=== PATIENT | male | born 1970 | race Caucasian/White ===

== ENCOUNTER 2016-07-30 10:23 | Inpatient (IN) ==
[2016-07-30 11:34] LABS: Basophils # 0.1 K/mcL (0.0-0.2); Basophils % 0.7 %; Eosinophils # 0.4 K/mcL (0.0-0.6); Eosinophils % 2.4 %; Hematocrit 43.1 % (37.5-50.1); Hemoglobin 14.7 g/dL (12.9-16.9); Immature Granulocytes % 3.4 % (0-4); Lymphocytes # 5.2 K/mcL (0.6-4.6); Mean Corpuscular HGB Conc 34.1 g/dL (31.6-35.5); Mean Corpuscular Hemoglobin 28.9 pg (28.0-33.3); Mean Corpuscular Volume 84.7 fL (83.0-100.0); Mean Platelet Volume 9.4 fL (9.4-12.4); Monocytes # 1.1 K/mcL (0.0-1.3); Monocytes % 7.7 %; Neutrophils # 7.5 K/mcL (1.6-8.9); Platelet Count 293 K/mcL (140-400); Red Blood Count 5.09 M/mcL (4.19-5.50); Red Cell Distribution Width 13.2 % (11.5-14.5); Segmented Neutrophils % 50.8 %
[2016-07-30] MEDS ORDERED: Vancomycin 1,250 MG in D5% in Water 250 ML IVPB ONE (11:37)
[2016-07-30 11:39] LABS: Prothrombin Time 10.6 Seconds (9.4-12.1)
[2016-07-30 11:42] LABS: Activated Partial Thrombo Time 34.6 Seconds (26.0-36.0)
[2016-07-30 11:52] LABS: Alanine Aminotransferase 98 Units/L (0-55); Albumin 3.6 g/dL (3.5-5.0); Albumin/Globulin Ratio 0.8 (1.1-2.2); Alkaline Phosphatase 96 Units/L (38-126); Aspartate Amino Transferase 36 Units/L (5-34); BUN/Creatinine Ratio 11 (6-26); Bilirubin,Direct 0.1 mg/dL (0.0-0.5); Bilirubin,Indirect 0.3 mg/dL (0.0-1.2); Bilirubin,Total 0.4 mg/dL (0.2-1.2); Blood Urea Nitrogen 11 mg/dL (8-26); Calcium 9.7 mg/dL (8.6-10.8); Carbon Dioxide 29 mEq/L (19-29); Chloride 100 mEq/L (98-109); Globulin 4.4 g/dL (2.4-3.5); Glucose 93 mg/dL (70-99); Magnesium 1.8 mg/dL (1.6-2.6); Osmolality,Calculated 285 (280-300); Phosphorous 3.4 mg/dL (2.3-4.7); Potassium 4.1 mEq/L (3.5-4.5); Sodium 138 mEq/L (136-145); eGFR For African Americans > 60 (> 60); eGFR For Non-African Americans > 60 (> 60)
--- NOTE | 2016-07-30 12:06 | Emergency Department Note ---
Disposition Clinical Impression: Endocarditis Qualifiers: Endocarditis type: infective Infective endocarditis organism: bacterial Chronicity: subacute Qualified Code(s): I33.0 - Acute and subacute infective endocarditis Chest pain Qualifiers: Chest pain type: unspecified Qualified Code(s): R07.9 - Chest pain, unspecified Disposition: Admitted As Inpatient Forms: Work/School Release, ED Satisfaction Letter Chest Pain HPI - General Chief Complaint: ED General Medical Stated Complaint: Endocarditis,sepsis Time Seen by Provider: 07/30/16 10:40 Source: patient Limitations: no limitations Vital Signs Reviewed: Yes Nursing Notes Reviewed: Yes - History of Present Illness Pt complaint: chest pain Duration: constant Onset: during rest Pain Location: substernal Severity scale (1-10): 6 Quality: aching Pain Radiation: none Improves with: nothing Worsens with: nothing Context: recent illness (diagnosed with endocarditis left GYPSY calderon had vancomycin infiltrated in left arm caused a lot of alas and anxiety and left the hospital) Treatments prior to arrival chest pain: none - Related Data Home Medications Medication Instructions Recorded Confirmed Albuterol Sulfate [Albuterol 2 puff IH Q4HR 05/20/15 05/20/15 Inhaler] Aspirin [Adult Low Dose Aspirin EC] 81 mg PO DAILY 05/20/15 05/20/15 Buspirone HCl [Buspar] 30 mg PO BID 05/20/15 05/20/15 CloNIDine HCl 0.1 mg PO BID 05/20/15 05/20/15 Diazepam [Valium] 5 mg PO TID 05/20/15 05/20/15 HydrOXYzine Pamoate [HydrOXYzine 50 mg PO BID 05/20/15 05/20/15 Pamoate] Lisinopril-HCTZ 20-12.5 [Prinzide 1 tab PO BID 05/20/15 05/20/15 20-12.5] Ranitidine HCl [Zantac] 150 mg PO BID 05/20/15 05/20/15 Previous Rx's Medication Instructions Recorded Levofloxacin [Levaquin] 500 mg PO DAILY #5 tablet 05/21/15 PredniSONE 20 mg PO DAILY #7 tablet 05/21/15 TraMADol [Ultram] 50 mg PO Q6HR #16 tablet 07/18/15 Azithromycin [Zithromax] 250 mg PO DAILY #6 tablet 06/16/16 MethylPREDNISolone [Medrol] 4 mg PO TAPER #21 tablet 06/16/16 Promethazine/Dextromethorphan 5 ml PO Q6H PRN #120 ml 06/16/16 [Promethazine-Dm Syrup] Allergies Allergy/AdvReac Type Severity Reaction Status Date / Time budesonide [From Symbicort] Allergy Swelling Verified 05/20/15 10:19 of Lip/Tongue/Throat Formoterol [From Symbicort] Allergy Swelling Verified 05/20/15 10:19 of Lip/Tongue/Throat Penicillins Allergy Hives Verified 05/20/15 10:19 Wzoglva-Mxt-Qps Reductase Allergy Muscle Pain Verified 05/20/15 10:19 Inhibitor [Statins] All systems ED: reviewed and negative except as stated. Constitutional: Denies: fever Respiratory: Denies: wheezes, hemoptysis Chest Pain PMH - Past Medical History Medical history: Reports: COPD, GERD, hyperlipidemia, hypertension Surgical history: Reports: no surgical history Psychiatric history: Reports: anxiety, depression, panic disorder - Social History Smoking Status: Current every day smoker Alcohol use: Reports: occasionally Drug use: Reports: marijuana Physical Exam - General Limitations: no limitations General appearance: alert - Head Head exam: atraumatic, normocephalic, normal inspection - Eye Eye exam: Present: normal appearance, PERRL, EOMI - Expanded Eye Exam Pupils: Left: reactive - ENT ENT exam: normal exam, normal oropharynx, mucous membranes moist - Expanded ENT Exam External ear exam: Present: normal external inspection Mouth exam: Present: normal external inspection Teeth exam: Present: normal inspection Throat exam: Present: normal inspection - Neck Neck exam: Present: normal inspection, full ROM, trachea midline - Chest Chest inspection: Present: normal inspection, symmetric chest wall rise - Respiratory Respiratory exam: Present: normal lung sounds bilaterally - Cardiovascular Cardiovascular exam: Present: regular rate, normal rhythm, normal heart sounds - Abdominal Exam Abdominal exam: Present: soft, Non-Tender. Absent: tenderness, distention, guarding, rebound, rigidity - Extremities Exam Extremities exam: Present: normal inspection, full ROM. Absent: tenderness, pedal edema - Expanded Upper Extremity Exam Shoulder exam: Present: normal inspection, full ROM Arm exam: Present: normal inspection, full ROM Elbow exam: Present: normal inspection, full ROM Forearm/Wrist exam: Present: normal inspection, full ROM Hand exam: Present: normal inspection, full ROM Vascular exam: Normal: capillary refill, radial pulse - Expanded Lower Extremity Exam Hip/Pelvis exam: Present: normal inspection, full ROM Upper leg exam: Present: normal inspection, full ROM Knee exam: Present: normal inspection, full ROM Lower leg exam: Present: normal inspection, full ROM Ankle exam: Present: normal inspection, full ROM Foot/toe exam: Present: normal inspection, full ROM Neurovascular/Tendon exam: Absent: motor deficit, sensory deficit, tendon deficit - Back Exam Back exam: Present: normal inspection, full ROM. Absent: tenderness - Neurological Exam Neurological exam: Present: alert, oriented X3 - Expanded Neurological Exam Patient oriented to: Present: person, place, time Coma Scale Eye Opening: Spontaneous Coma Scale Motor Response: Obeys Commands Coma Scale Verbal Response: Oriented Coma Scale Total: 15 - Psychiatric Psychiatric exam: Present: normal affect, normal mood - Skin Skin exam: Present: warm, dry, intact, normal color Course Vital Signs Temperature 98.6 F 07/30/16 10:31 Pulse Rate 100 07/30/16 10:31 Respiratory Rate 18 07/30/16 10:31 Blood Pressure 155/108 07/30/16 10:31 O2 Sat by Pulse Oximetry 99 07/30/16 10:31 Temperature 98.6 F 07/30/16 10:31 Pulse Rate 100 07/30/16 10:31 Respiratory Rate 18 07/30/16 10:31 Blood Pressure 155/108 07/30/16 10:31 O2 Sat by Pulse Oximetry 99 07/30/16 10:31 Oxygen Delivery Oxygen Delivery Room Air Chest Pain - Differential Diagnosis Likely: stable angina, unstable angina pectoris, atypical chest pain, st elevation myocardial infraction, chest pain - Medical Records Medical records reviewed: Yes I reviewed the patient's medical records. - Lab Data Lab results reviewed: Yes I reviewed the patient's lab results. Result diagrams: 07/30/16 11:20 07/30/16 11:20 Lab Results 07/30/16 07/30/16 07/30/16 Range/Units 11:20 11:20 11:20 WBC 14.8 H (4.3-11.1) K/mcL RBC 5.09 (4.19-5.50) M/mcL Hgb 14.7 (12.9-16.9) g/dL Hct 43.1 (37.5-50.1) % MCV 84.7 (83.0-100.0) fL MCH 28.9 (28.0-33.3) pg MCHC 34.1 (31.6-35.5) g/dL RDW 13.2 (11.5-14.5) % Plt Count 293 (140-400) K/mcL MPV 9.4 (9.4-12.4) fL Immature Gran % 3.4 (0-4) % Seg Neutrophils % 50.8 % Lymphocytes % 35.0 % Monocytes % 7.7 % Eosinophils % 2.4 % Basophils % 0.7 % Neutrophils # 7.5 (1.6-8.9) K/mcL Lymphocytes # 5.2 H (0.6-4.6) K/mcL Monocytes # 1.1 (0.0-1.3) K/mcL Eosinophils # 0.4 (0.0-0.6) K/mcL Basophils # 0.1 (0.0-0.2) K/mcL PT 10.6 (9.4-12.1) Seconds INR 1.0 APTT 34.6 (26.0-36.0) Seconds Sodium 138 (136-145) mEq/L Potassium 4.1 (3.5-4.5) mEq/L Chloride 100 (98-109) mEq/L Carbon Dioxide 29 (19-29) mEq/L BUN 11 (8-26) mg/dL Creatinine 0.96 (0.72-1.25) mg/dL Est GFR ( Amer) > 60 (> 60) Est GFR (Non-Af Amer) > 60 (> 60) BUN/Creatinine Ratio 11 (6-26) Glucose 93 (70-99) mg/dL Calculated Osmolality 285 (280-300) Lactic Acid (0.5-2.2) mmol/L Calcium 9.7 (8.6-10.8) mg/dL Phosphorus 3.4 (2.3-4.7) mg/dL Magnesium 1.8 (1.6-2.6) mg/dL Total Bilirubin 0.4 (0.2-1.2) mg/dL Direct Bilirubin 0.1 (0.0-0.5) mg/dL Indirect Bilirubin 0.3 (0.0-1.2) mg/dL AST 36 H (5-34) Units/L ALT 98 H (0-55) Units/L Alkaline Phosphatase 96 (38-126) Units/L Troponin I (0-0.03) ng/mL Serum Total Protein 8.0 (6.0-8.3) g/dL Albumin 3.6 (3.5-5.0) g/dL Globulin 4.4 H (2.4-3.5) g/dL Albumin/Globulin Ratio 0.8 L (1.1-2.2) 07/30/16 07/30/16 Range/Units 11:20 11:20 WBC (4.3-11.1) K/mcL RBC (4.19-5.50) M/mcL Hgb (12.9-16.9) g/dL Hct (37.5-50.1) % MCV (83.0-100.0) fL MCH (28.0-33.3) pg MCHC (31.6-35.5) g/dL RDW (11.5-14.5) % Plt Count (140-400) K/mcL MPV (9.4-12.4) fL Immature Gran % (0-4) % Seg Neutrophils % % Lymphocytes % % Monocytes % % Eosinophils % % Basophils % % Neutrophils # (1.6-8.9) K/mcL Lymphocytes # (0.6-4.6) K/mcL Monocytes # (0.0-1.3) K/mcL Eosinophils # (0.0-0.6) K/mcL Basophils # (0.0-0.2) K/mcL PT (9.4-12.1) Seconds INR APTT (26.0-36.0) Seconds Sodium (136-145) mEq/L Potassium (3.5-4.5) mEq/L Chloride (98-109) mEq/L Carbon Dioxide (19-29) mEq/L BUN (8-26) mg/dL Creatinine (0.72-1.25) mg/dL Est GFR ( Amer) (> 60) Est GFR (Non-Af Amer) (> 60) BUN/Creatinine Ratio (6-26) Glucose (70-99) mg/dL Calculated Osmolality (280-300) Lactic Acid 1.6 (0.5-2.2) mmol/L Calcium (8.6-10.8) mg/dL Phosphorus (2.3-4.7) mg/dL Magnesium (1.6-2.6) mg/dL Total Bilirubin (0.2-1.2) mg/dL Direct Bilirubin (0.0-0.5) mg/dL Indirect Bilirubin (0.0-1.2) mg/dL AST (5-34) Units/L ALT (0-55) Units/L Alkaline Phosphatase (38-126) Units/L Troponin I 0.00 (0-0.03) ng/mL Serum Total Protein (6.0-8.3) g/dL Albumin (3.5-5.0) g/dL Globulin (2.4-3.5) g/dL Albumin/Globulin Ratio (1.1-2.2) - EKG Data EKG attestation: Yes I reviewed and interpreted this EKG.
[2016-07-30] MEDS ORDERED: Ondansetron 4 MG/2 ML VIAL IV ONE (12:12)
[2016-07-30] MEDS ORDERED: *HR* HYDROmorphone (PF) 1 MG/ML SYRINGE IV ONE (12:12)
--- NOTE | 2016-07-30 14:50 | Internal Med History&Physical ---
Date of Encounter: 07/30/16 Time of Encounter: 15:44 Assessment and Plan (1) Endocarditis Current visit: Yes Status: Acute Has not had positive blood cultures, but has had mitral valve vegetation seen on [place] at [place], per report. Evaluated by ID at [facility], thought to be secondary to extensive dental extraction, patient denies IV drug abuse. Patient has history of leaving hospital AMA multiple times in past. - Restart vanc and ertapenem - Blood cultures obtained in ER - Midline placed in ER, as patient reports he left AMA from last hospital because of IV infiltration - Consult ID for assistance with antibiotic regimen and follow up Qualifiers: Endocarditis type: infective Infective endocarditis organism: bacterial Chronicity: acute Qualified Code(s): I33.0 - Acute and subacute infective endocarditis (2) Anxiety Current visit: Yes Status: Chronic Stable - Continue home meds (3) COPD (chronic obstructive pulmonary disease) Current visit: No Status: Chronic Not in current exacerbation - Continue home symbicort - Duonebs Qualifiers: COPD type: unspecified COPD Qualified Code(s): J44.9 - Chronic obstructive pulmonary disease, unspecified (4) HTN (hypertension) Current visit: No Status: Chronic BP stable - Continue home meds Qualifiers: Hypertension type: essential hypertension Qualified Code(s): I10 - Essential (primary) hypertension (5) Chest pain Current visit: Yes Status: Acute Pleuritic, secondary to endocarditis, as it has been present for several weeks. Qualifiers: Chest pain type: unspecified Qualified Code(s): R07.9 - Chest pain, unspecified Internal Medicine - H&P: HPI Chief complaint: Chest pain Admitted From: Emergency Dept Plans for Post Hospital Care: Home History of present illness: Mr. Harris is a 46 year old male with history of HTN, COPD, anxiety, and multiple recent admissions for presumed bacterial endocarditis who presented to the ER this morning with complaint of chest pain. He has been admitted both at [facility] and [facility] over the past month with leukocytosis, fever, and concern for vegetation on the mitral valve. He left AMA from each hospitalization, then saw his PCP today who recommended he present to the hospital for further treatment. Per records from [facility], where he was most recently hospitalized (07/24-07/26), it appears that he had been evaluated by ID and it was recommended he take at least four weeks of IV vancomycin and ertapenem, as no blood cultures had returned positive. He denies IV drug abuse and it was felt his endocarditis may have been secondary to recent dental extractions. He states that today he continues to have pain under the left breast, worse with deep inspiration, and has been present since he first presented for endocarditis. He also is experiencing dull generalized abdominal pain. Denies recent fever/chills, nausea, vomiting or diarrhea. Past Med Surg Social Fam HX - Past Medical History Medical history: COPD, GERD, hyperlipidemia, hypertension Psychiatric history: anxiety, depression, panic disorder - Past Surgical History Surgical History: no surgical history - Social History Smoking Status: Current every day smoker Smokeless Tobacco Status: No Alcohol use: occasionally Drug use: marijuana - Family History Mother Adopted: No Age: 65 Family Member Ethnicity: Non- Living Status: Still Living Hx Family Cardiac Disorders: Yes (bypass surgery) Hx Family Respiratory Disorders: Yes (COPD) Hx Family Cancer: No Hx Family GI Disorders: No Hx Family Genitourinary Disorders: No Hx Family Endocrine Disorder: No Hx Family Musculoskeletal Disorders: No Hx Family Neuromuscular Disorders: No Hx Family Neurologic Disorders: No Hx Family HEENT Disorders: No Hx Family Autoimmune Disorders: No Hx Family Reproductive Disorders: No Hx Family Psychosocial Disorders: No Hx Family Medical Disorders: No Internal Medicine - H&P: Meds Albuterol Sulfate [Albuterol Inhaler] 2 puff IH Q4HR 05/20/15 [History] Buspirone HCl [Buspar] 30 mg PO BID 05/20/15 [History] CloNIDine HCl 0.1 mg PO BID 05/20/15 [History] Diazepam [Valium] 5 mg PO TID 05/20/15 [History] HydrOXYzine Pamoate [HydrOXYzine Pamoate] 50 mg PO BID 05/20/15 [History] Lisinopril-HCTZ 20-12.5 [Prinzide 20-12.5] 1 tab PO BID 05/20/15 [History] Ranitidine HCl [Zantac] 150 mg PO BID 05/20/15 [History] Budesonide/Formoterol 80/4.5 [Symbicort 80/4.5] 2 puff IH BID 07/30/16 [History ] Ipratropium/Albuterol Neb [Duoneb] 3 ml IH Q6HR 07/30/16 [History] Allergies Penicillins Allergy (Verified 05/20/15 10:19) Hives [id number]-[id number] Reductase Inhibitor [Statins] Allergy (Verified 05/20/15 10:19) Muscle Pain budesonide [From Symbicort] Adverse Reaction (Unknown, Verified 07/30/16 15:33) THRUSH Formoterol [From Symbicort] Adverse Reaction (Unknown, Verified 07/30/16 15:33) THRUSH All Systems PM: A 10-system review of systems was performed and is negative for pertinent findings except as documented above in the HPI. - Constitutional Vitals: Temp Pulse Resp BP Pulse Ox 98.6 F 100 16 155/108 98 07/30/16 10:31 07/30/16 10:31 07/30/16 12:56 07/30/16 10:31 07/30/16 12:56 General appearance: Present: A&O X 3 Exam: Patient in no acute distress, resting comfortably in bed - Head Head exam: Present: atraumatic - Eye Eye exam: Present: EOMI, sclera anicteric - ENT ENT exam: Present: mucous membranes moist - Neck Neck exam general surgery: Present: supple - Respiratory Respiratory exam: Present: CTAB - Cardiovascular Cardiovascular exam: Present: RRR. Absent: diastolic murmur, gallop, rubs, systolic murmur - GI/Abdominal GI/Abdominal exam: Present: normal bowel sounds, soft, tenderness (mildly tender throughout). Absent: guarding, rebound - Extremities Exam Extremities exam: Absent: pedal edema - Neurological Exam Neurological exam: Present: no focal deficits - Skin Skin exam: Absent: rash Additional comments: multiple tattoos Internal Med - H&P Results - Labs CBC & Chem 7: 07/30/16 11:20 07/30/16 11:20
[2016-07-30] MEDS ORDERED: Naloxone 0.4 MG/ML INJ IVP PRN (15:03)
[2016-07-30] MEDS ORDERED: Vancomycin 1,250 MG in D5% in Water 250 ML IVPB SCH (16:00)
[2016-07-30] MEDS ORDERED: *HR* Enoxaparin 40 MG/0.4 ML SYRINGE SQ ONE (17:01)
[2016-07-30] MEDS: Ipratropium/Albuterol Neb 3 ML IH SCH ×2 (17:02→21:11)
[2016-07-30] MEDS: *HR* OxyCODONE/APAP 5/325 TABLET PO PRN ×2 (17:03→22:35)
[2016-07-30] MEDS ORDERED: Nicotine 21 MG PATCH.TD24 TD STA (18:56)
[2016-07-30] MEDS: *HR* HYDROmorphone (PF) 1 MG/ML SYRINGE IVP PRN (19:30)
[2016-07-30] MEDS: diazePAM 5 MG TABLET PO SCH (20:12)
[2016-07-30] MEDS: Lisinopril-HCTZ 20-12.5mg TABLET PO SCH (20:12)
[2016-07-30] MEDS: hydrOXYzine pamoate 25 MG CAPSULE PO SCH (20:12)
[2016-07-30] MEDS: cloNIDine HCl 0.1 MG TABLET PO SCH (20:12)
[2016-07-30] MEDS ORDERED: Famotidine 20 MG TABLET PO SCH (21:00)
[2016-07-30] MEDS: Budesonide/Formoterol 80/4.5 MDI IH SCH (21:02)
[2016-07-31] MEDS: *HR* HYDROmorphone (PF) 1 MG/ML SYRINGE IVP PRN (01:21)
[2016-07-31] MEDS: Vancomycin 1,250 MG in D5% in Water 250 ML IVPB SCH ×2 (01:24→13:22)
[2016-07-31 03:46] LABS: Basophils # 0.1 K/mcL (0.0-0.2); Basophils % 0.6 %; Eosinophils # 0.4 K/mcL (0.0-0.6); Eosinophils % 2.8 %; Hematocrit 40.8 % (37.5-50.1); Immature Granulocytes % 2.3 % (0-4); Lymphocytes # 4.7 K/mcL (0.6-4.6); Lymphocytes % 36.9 %; Mean Corpuscular HGB Conc 34.3 g/dL (31.6-35.5); Mean Corpuscular Hemoglobin 29.5 pg (28.0-33.3); Mean Corpuscular Volume 86.1 fL (83.0-100.0); Mean Platelet Volume 9.7 fL (9.4-12.4); Monocytes % 7.7 %; Neutrophils # 6.3 K/mcL (1.6-8.9); Platelet Count 264 K/mcL (140-400); Red Blood Count 4.74 M/mcL (4.19-5.50); Red Cell Distribution Width 13.1 % (11.5-14.5); Segmented Neutrophils % 49.7 %
[2016-07-31 03:57] LABS: BUN/Creatinine Ratio 13 (6-26); Blood Urea Nitrogen 11 mg/dL (8-26); Carbon Dioxide 23 mEq/L (19-29); Chloride 100 mEq/L (98-109); Glucose 121 mg/dL (70-99); Osmolality,Calculated 281 (280-300); Potassium 3.9 mEq/L (3.5-4.5); Sodium 135 mEq/L (136-145); eGFR For African Americans > 60 (> 60); eGFR For Non-African Americans > 60 (> 60)
[2016-07-31] MEDS: *HR* OxyCODONE/APAP 5/325 TABLET PO PRN ×5 (03:57→21:05)
[2016-07-31] MEDS: Ipratropium/Albuterol Neb 3 ML IH SCH ×2 (04:28→10:32)
[2016-07-31] MEDS ORDERED: Famotidine 20 MG TABLET PO SCH (07:30)
[2016-07-31] MEDS: Nicotine 21 MG PATCH.TD24 TD SCH (08:03)
[2016-07-31] MEDS: cloNIDine HCl 0.1 MG TABLET PO SCH ×2 (08:03→21:04)
[2016-07-31] MEDS: diazePAM 5 MG TABLET PO SCH ×3 (08:03→21:05)
[2016-07-31] MEDS: hydrOXYzine pamoate 25 MG CAPSULE PO SCH ×2 (08:03→21:04)
[2016-07-31] MEDS: Lisinopril-HCTZ 20-12.5mg TABLET PO SCH ×2 (08:03→21:04)
[2016-07-31] MEDS: Budesonide/Formoterol 80/4.5 MDI IH SCH ×2 (08:21→20:03)
[2016-07-31] MEDS ORDERED: Ertapenem 1,000 MG in 0.9 % Sodium Chloride Mini Bag 100 ML IVPB SCH (09:00)
[2016-07-31] MEDS: RANITIDINE 150 MG PO SCH ×2 (10:01→22:38)
--- NOTE | 2016-07-31 10:10 | Internal Med Progress Note ---
<Malina Acuna - Last Filed: 07/31/16 17:27> Date of Encounter: 07/31/16 Time of Encounter: 10:07 - Assessment and plan (1) Endocarditis Current Visit: Yes Status: Acute Assessment and plan: Patient has previous dx of endocarditis at [facility], was started on Vanc and ertapenem at [facility] but left AM after IV infiltrated before he could have outpatient IV therapy set up. Patient afebrile, WBC 12.7 today. ID is on board and has reviewed records obtained from [facility]. Plan: -PICC line placed -Ertapenem stopped -Continue vanc, will likely need 6 weeks of IV therapy -Start Gentamicin 1mg/kg IV Q8H for 2 weeks (unable to use amp/sulbactam due to PCN allergy). -Cipro 500mg BID -HH infusion therapy in place, rx sent for infusions to begin tomorrow. -Per ID: -Baseline hearing test with audiology for 11AM 08/01 -Check labs twice weekly for the entire duration of treatment: CBC, BMP and vanc and gentamicin levels per protocol. -Weekly PICC care per protocol. -Follow up with ID 08/15/15 at 1400. -Will need a repeat ECHO after treatment completed. 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 shelter use Qualified Code(s): E11.9 - Type 2 diabetes mellitus without complications (4) HTN (hypertension) Current Visit: No Status: Chronic Qualifiers: Hypertension type: essential hypertension Qualified Code(s): I10 - Essential (primary) hypertension (5) Tobacco abuse Current Visit: No Status: Chronic Assessment and plan: Nicotine patch, cessation counseling (6) MARYCARMEN (obstructive sleep apnea) Current Visit: No Status: Acute (7) Anxiety Current Visit: Yes Status: Chronic (8) Abdominal pain Current Visit: Yes Status: Acute Assessment and plan: Patient complains of abdominal pain Plan: -CT abd w IV and oral contrast Qualifiers: Abdominal location: periumbilical Qualified Code(s): R10.33 - Periumbilical pain - Subjective Interval history: Patient seen and examined. He has been up ambulating on the unit this morning, although he states that he became dizzy while walking. He states that he had some mild CP this am that he thinks was anxiety. He states he gets very anxious while in the hospital and his anxiety level goes up. He has mild sob, which is at his baseline secondary to COPD. He also notes midline abdominal pain that feels like he is getting a lot of shots. He denies diarrhea or blood in his stool. He notes that his stool is bright green. He denies vomiting, fevers or chills. - Constitutional Vitals: Temp Pulse Resp BP Pulse Ox 97.8 F 63 14 132/89 96 07/31/16 07:17 07/31/16 07:17 07/31/16 08:21 07/31/16 07:17 07/31/16 08:21 General appearance: Present: cooperative, A&O X 3, pleasant, no acute distress, answers questions appropriately - Head Head exam: Present: atraumatic, normocephalic - Eye Eye exam: Present: EOMI, PERRL, conjuntiva pink, sclera anicteric Pupils: Present: PERRL - ENT ENT exam: Present: mucous membranes moist Additional comments: No teeth in upper gums - Neck Neck exam general surgery: Present: supple, trachea midline. Absent: lymphadenopathy - Respiratory Respiratory exam: Present: rales. Absent: accessory muscle use, respiratory distress - Cardiovascular Cardiovascular exam: Present: RRR, +S1, +S2. Absent: diastolic murmur, gallop, rubs, systolic murmur - GI/Abdominal GI/Abdominal exam: Present: distended, firm, normal bowel sounds, tenderness ( diffuse), no peritoneal signs - Extremities Exam Extremities exam: Present: warm, radial pulses palpable and symetrical. Absent : calf tenderness, cyanotic, pedal edema - Neurological Exam Neurological exam: Present: oriented X3, no focal deficits. Absent: facial droop, speech deficit - Psychiatric Psychiatric exam: Present: normal affect, normal mood - Skin Skin exam: Present: dry, intact Internal Medicine: Result - Labs CBC & Chem 7: 07/31/16 03:35 07/31/16 03:35 Labs: Short CBC 07/31/16 Range/Units 03:35 WBC 12.7 H (4.3-11.1) K/mcL Hgb 14.0 (12.9-16.9) g/dL Hct 40.8 (37.5-50.1) % Plt Count 264 (140-400) K/mcL Neutrophils # 6.3 (1.6-8.9) K/mcL BMP 07/31/16 03:35 Sodium 135 L Potassium 3.9 Chloride 100 Carbon Dioxide 23 BUN 11 Creatinine 0.84 Glucose 121 H Calcium 9.0 - ABG Interpretation ABG results: PT/INR, D-dimer PT 10.6 Seconds (9.4-12.1) 07/30/16 11:20 - Diagnostic Studies CT scan - abdomen Additional comments: Abdomen/Pelvis CT 07/31/16 13:30 IMPRESSION: No acute intra-abdominal or pelvic process is identified. Specifically, no intra-abdominal or pelvic abscess is identified. There is a very small hypodense lesion seen in the right hepatic lobe, measuring -5 Hounsfield units, likely representing a small cyst. There is a too small to characterize 4.7 mm hypodensity seen in the right kidney, which may represent a small cyst. Other incidental findings as above. D/ / Raúl Mcconnell MD / Raúl Mcconnell MD Interpreting Provider: Raúl Mcconnell MD Consult Discharge Plan - Plan Additional Instructions: Follow up with [facility] 08/01/16 at 1100. [address]. Follow up with ID 08/15/15 at 1400. Follow up with your primary care physician within 3-5 days. Check labs twice weekly for the entire duration of treatment: CBC, BMP and vanc and gentamicin levels per protocol. . Referrals: Migdalia Nicholson CNP [Advanced Practice Nurse] - 08/14/16 2:00 pm Maria Teresa Gilliam CNP [Primary Care Provider] - 08/06/16 4:00 pm (Please follow up as schedule...) Prescriptions: Ciprofloxacin [Cipro] 500 mg PO BID 14 Days Gentamicin in NaCl, Iso-Osm [Gentamicin 80 mg/Ns 100 ml Pb] 80 mg IV Q8H 14 Days Vancomycin HCl in Dextrose 5 % [Vancomycin 750 mg/250 ml-D5w] 1,250 mg IV Q12H 28 Days <RipEdvin Fabian - Last Filed: 07/31/16 18:04> - Assessment and plan (1) Endocarditis Current Visit: Yes Status: Acute Qualifiers: Endocarditis type: infective Infective endocarditis organism: bacterial Chronicity: acute Qualified Code(s): I33.0 - Acute and subacute infective endocarditis (2) Abdominal pain Current Visit: Yes Status: Acute Qualifiers: Abdominal location: periumbilical Qualified Code(s): R10.33 - Periumbilical pain (3) Anxiety Current Visit: Yes Status: Chronic (4) Diabetes mellitus Current Visit: No Status: Acute Qualifiers: Diabetes mellitus type: type 2 Diabetes mellitus complication status: without complication Diabetes mellitus intermodal owner operator truck driver insulin use: without intermodal owner operator truck driver use Qualified Code(s): E11.9 - Type 2 diabetes mellitus without complications (5) MARYCARMEN (obstructive sleep apnea) Current Visit: No Status: Acute (6) COPD (chronic obstructive pulmonary disease) Current Visit: No Status: Chronic Qualifiers: COPD type: unspecified COPD Qualified Code(s): J44.9 - Chronic obstructive pulmonary disease, unspecified (7) HTN (hypertension) Current Visit: No Status: Chronic Qualifiers: Hypertension type: essential hypertension Qualified Code(s): I10 - Essential (primary) hypertension (8) Tobacco abuse Current Visit: No Status: Chronic - Constitutional Vitals: Temp Pulse Resp BP Pulse Ox 98.0 F 82 16 122/81 96 07/31/16 16:11 07/31/16 16:11 07/31/16 16:11 07/31/16 16:11 07/31/16 16:11 Internal Medicine: Result - Labs CBC & Chem 7: 07/31/16 03:35 07/31/16 03:35 Labs: Short CBC 07/31/16 Range/Units 03:35 WBC 12.7 H (4.3-11.1) K/mcL Hgb 14.0 (12.9-16.9) g/dL Hct 40.8 (37.5-50.1) % Plt Count 264 (140-400) K/mcL Neutrophils # 6.3 (1.6-8.9) K/mcL BMP 07/31/16 03:35 Sodium 135 L Potassium 3.9 Chloride 100 Carbon Dioxide 23 BUN 11 Creatinine 0.84 Glucose 121 H Calcium 9.0 - ABG Interpretation ABG results: PT/INR, D-dimer PT 10.6 Seconds (9.4-12.1) 07/30/16 11:20 - Impressions Impressions Abdomen/Pelvis CT 07/31/16 13:30 IMPRESSION: No acute intra-abdominal or pelvic process is identified. Specifically, no intra-abdominal or pelvic abscess is identified. There is a very small hypodense lesion seen in the right hepatic lobe, measuring -5 Hounsfield units, likely representing a small cyst. There is a too small to characterize 4.7 mm hypodensity seen in the right kidney, which may represent a small cyst. Other incidental findings as above. D/ / Raúl Mcconnell MD / Raúl Mcconnell MD Interpreting Provider: aRúl Mcconnell MD - Attending Attestation I examined this patient and my medical decision-making was reviewed with the Resident Physician on 07/31/16. I agree with the documented findings, disposition and treatment plan as described except to the extent set forth below. Mr. Harris is currently admitted for culture negative endocarditis. He is high risk due to potential for worsening infectious issues. Mr. Harris is doing better today. He is tolerating the IV abx. No pain or other issue. No dyspnea. Exam Alert. Comfortable Heart reg No wheeze I/P 1. Culture negative endocarditis - arranging for outpatient abx IV 2. Anxiety Further diagnoses and plan as above.
[2016-07-31] MEDS ORDERED: Acetaminophen 325 MG TABLET PO PRN (10:40)
[2016-07-31] MEDS ORDERED: Albuterol 2.5 MG/3 ML NEBULIZER IH PRN (10:43)
--- NOTE | 2016-07-31 11:32 | Infectious Disease Consult ---
Date of Encounter: 07/31/16 Time of Encounter: 11:30 Assessment and Plan (1) Endocarditis Status: Acute Assessment and plan: Causative organism unclear. Blood culture results are as follows: 07/20/16 [facility] negative x 2 sets. 07/20/16 [facility] negative x 2 sets. 07/24/16 [facility] negative x 3 sets. Bartonella, Q fever, and Brucellosis serologies drawn at [facility] are negative. TTE completed at [facility] showed echodensity on the mitral valve concerning for vegetation. TRENTON was deferred. Patient was started on Vancomycin and Ertapenem at [facility], but signed out AMA. Presented to [facility] ED yesterday. Repeat blood culture 07/30/16 is NGTD x 1 set. Patient did have a positive throat culture for GAS. Patient adamantly denies drug use except for marijuana, which he uses daily. No evidence of metastatic disease. No endocarditis stigmata noted. The patient has one major and one minor Modified Reilly's Criteria. Concern for transient bacteremia secondary to recent dental procedure. Continue Vancomycin IV. Pharmacy to dose. Goal trough approximately 15. Discontinue Ertapenem. Start Gentamicin 1mg/kg IV Q8H (unable to use amp/sulbactam due to PCN allergy). Start Cipro 500mg PO BID. He will need a baseline hearing test due to the potential for ototoxicity related to the gentamicin. Duration of treatment depends on the clinical picture, but likely 6 weeks of IV antibiotics will be required. I discussed the importance of continuing treatment for the entire projected duration with the patient and his family. I advised him that he is expected to be compliant with the medications, weekly lab drawn and dressing changes and office visits every two weeks. We discussed the risks, benefits, and alternatives of the prolonged IV therapy. All questions were answered. He verbalizes understanding of the above information and agrees to proceed with treatment. Consult VAT to replace Powerglide EPIV with PICC line due to prolonged duration of treatment and need to Vancomycin at home. Check labs twice weekly for the entire duration of treatment: CBC, BMP and vanc and gentamicin levels per protocol. Weekly PICC care per protocol. Follow up with ID 08/15/15 at 1400. Will need a repeat ECHO after treatment completed. Discussed with Dr. Burgos of the cardiology service. States that since the endocarditis was diagnosed with a TTE, okay to evaluate treatment effectiveness with TR[place]ON post-treatment. Qualifiers: Endocarditis type: infective Infective endocarditis organism: bacterial Chronicity: acute Qualified Code(s): I33.0 - Acute and subacute infective endocarditis (2) COPD (chronic obstructive pulmonary disease) Status: Chronic Qualifiers: COPD type: unspecified COPD Qualified Code(s): J44.9 - Chronic obstructive pulmonary disease, unspecified (3) HTN (hypertension) Status: Chronic Qualifiers: Hypertension type: essential hypertension Qualified Code(s): I10 - Essential (primary) hypertension (4) Tobacco abuse Status: Chronic (5) Anxiety Status: Chronic Infectious Disease HPI - Data of Consult Patient: new to practice Consult date: 07/31/16 Requesting Physician: Edvin Erwin DO Primary Care Provider: Maria Teresa Gilliam CNP - Consult Narrative Reason for consult: Endocarditis History of present illness: Mr. Harris is a 46 year old male with a past medical history of COPD, GERD, hypertension, anxiety, and depression. The patient was admitted to the hospital July 30 for endocarditis. We are consulted July 31 for further evaluation and treatment recommendations regarding endocarditis. Patient's a 46-year-old male with past medical history as stated above. Review of the medical record reveals that the patient was originally in the emergency department back on July 20 with complaints of fevers after dental procedure. There was concern about possible endocarditis and the patient was transferred to [facility] due to ER staff thinking there is no infectious disease coverage here. At [place], the patient underwent a transthoracic echo that revealed a mitral valve echodensity concerning for possible vegetation. Additionally, the patient had a throat culture that was positive for group A strep. Blood cultures obtained at [place] were negative. The patient ended up signing out AMA, but was readmitted at [place] later that afternoon after the family talked him into going back. The patient was there until July 24, and again signed out AMA. He presented to the emergency department at [facility] and was subsequently admitted there. Again, blood cultures were drawn and were -3 out of 3 sets. Patient was started on IV vancomycin and ertapenem with plans to treat for 4-6 weeks, but the patient ended up signing out AMA again. 2 of the records from [facility] revealed that they also did Bartonella, Brucella, and Q fever serologies, which were all negative. Upon arrival to our ER, the patient was afebrile, but he was mildly tachycardic. His white blood cell count had trended down to 14.8 from 30 back when this all started. A sick metabolic panel was significant for mildly elevated LFTs. Lactic acid was normal. Troponin was negative. Blood cultures obtained in the emergency department are no growth to date 2 sets. Repeat labs this morning revealed a white Blood cell count is down to 12.7. Currently, the patient is on IV vancomycin and IV ertapenem. We' ve been asked to evaluate it further recommendations. During my exam today, the patient endorses a history as stated above. He states back on June 18, he underwent removal of all of his top teeth in preparation for dentures. We'll dental caries. He states that prior to that surgery he had received or a seven-day course of oral clindamycin, which she finished. He states he went back to surgery and underwent removal of bone spurs approximately 2 weeks later. He states that he received no prophylactic or postop antibiotics with that procedure. He states that the morning of presentation he began to experience fevers and chills and overall generalized fatigue and malaise. He reports some intermittent headaches, but no neck pain or rigidity. He denied any chest pain, but does report chronic shortness of breath secondary to COPD. He reports a moist chronic cough. He states that he had nausea, but no vomiting. He does report some intermittent abdominal pain. He denies pain in any of his extremities or back. 9 any abdias purulence, swelling, or marketed pain at the surgical site. He does report that he had a severe sore throat and cervical lymphadenopathy when he presented to [place] originally. The patient states he lives at home with his fiance. He is currently unemployed , but previously worked as a window washer. He does smoke cigarettes, approximately one pack per day, but adamantly denies any IV or abuse. He does report that he smokes marijuana daily. He denies any alcohol use. Eyes no recent travel. He has no indwelling hardware. CC: Edvin Erwin, DO Past Med Surg Social Fam HX - Past Medical History Attestation: Yes The following information was validated with the patient. Source: patient, old records reviewed, nursing notes reviewed Medical history: COPD, GERD, hyperlipidemia, hypertension Psychiatric history: anxiety, depression, panic disorder - Past Surgical History Surgical History: orthopedic, other (Trigger finger release, dental extraction) - Social History Smoking Status: Current every day smoker Packs per day: 1 Smokeless Tobacco Status: No Alcohol use: occasionally Drug use: marijuana (daily) Occupational status: unemployed Current living situation: Home - Independent Activity Level: Independent ambulation Recent Out of Country Travel Within the Last 8 Weeks: No Exposure or Possible Exposure to Illness During Travel: No - Family History Mother Adopted: No Age: 65 Family Member Ethnicity: Non- Living Status: Still Living Hx Family Cardiac Disorders: Yes (bypass surgery) Hx Family Respiratory Disorders: Yes (COPD) Hx Family Cancer: No Hx Family GI Disorders: No Hx Family Genitourinary Disorders: No Hx Family Endocrine Disorder: No Hx Family Musculoskeletal Disorders: No Hx Family Neuromuscular Disorders: No Hx Family Neurologic Disorders: No Hx Family HEENT Disorders: No Hx Family Autoimmune Disorders: No Hx Family Reproductive Disorders: No Hx Family Psychosocial Disorders: No Hx Family Medical Disorders: No Infectious Disease-CN:Meds Albuterol Sulfate [Albuterol Inhaler] 2 puff IH Q4HR 05/20/15 [History] Buspirone HCl [Buspar] 30 mg PO BID 05/20/15 [History] CloNIDine HCl 0.1 mg PO BID 05/20/15 [History] Diazepam [Valium] 5 mg PO TID 05/20/15 [History] HydrOXYzine Pamoate 50 mg PO BID 05/20/15 [History] Lisinopril-HCTZ 20-12.5 [Prinzide 20-12.5] 1 tab PO BID 05/20/15 [History] Ranitidine HCl [Zantac] 150 mg PO BID 05/20/15 [History] Budesonide/Formoterol 80/4.5 [Symbicort 80/4.5] 2 puff IH BID 07/30/16 [History ] Ipratropium/Albuterol Neb [Duoneb] 3 ml IH Q6HR 07/30/16 [History] Ciprofloxacin [Cipro] 500 mg PO BID 14 Days 07/31/16 [Rx] Gentamicin in NaCl, Iso-Osm [Gentamicin 80 mg/Ns 100 ml Pb] 80 mg IV Q8H 14 Days 07/31/16 [Rx] Patient Taking Own Medication 0 each PO BID each 07/31/16 [Rx] Vancomycin HCl in Dextrose 5 % [Vancomycin 750 mg/250 ml-D5w] 1,250 mg IV Q12H 28 Days 07/31/16 [Rx] Allergies Penicillins Allergy (Verified 05/20/15 10:19) Hives Vllqqol-Qlz-Jdy Reductase Inhibitor [Statins] Allergy (Verified 05/20/15 10:19) Muscle Pain budesonide [From Symbicort] Adverse Reaction (Unknown, Verified 07/30/16 15:33) THRUSH Formoterol [From Symbicort] Adverse Reaction (Unknown, Verified 07/30/16 15:33) THRUSH All systems: reviewed and no additional remarkable complaints except as stated Exam - Constitutional Vitals: Temp Pulse Resp BP Pulse Ox 97.8 F 63 14 132/89 96 07/31/16 07:17 07/31/16 07:17 07/31/16 08:21 07/31/16 07:17 07/31/16 08:21 General appearance: average body habitus, cooperative, no acute distress - Head Head exam: Present: atraumatic, normal inspection, normocephalic - Eye Eye exam: Present: EOMI, normal appearance, PERRL Pupils: Present: normal accommodation Additional comments: No subconjunctival hemorrhage noted. - ENT ENT exam: Present: mucous membranes moist Additional comments: All teeth missing from the upper gums. No bleeding, exudate, or swelling noted. - Neck Neck exam: Present: normal inspection. Absent: lymphadenopathy - Respiratory Respiratory exam: Present: CTAB. Absent: rales, respiratory distress, rhonchi, wheezes - Cardiovascular Cardiovascular exam: Present: RRR, +S1, +S2 - GI/Abdominal GI/Abdominal exam: Present: normal bowel sounds, soft. Absent: distended, tenderness - Extremities Exam Extremities exam: Present: normal inspection. Absent: joint swelling, pedal edema, tenderness Additional comments: No endocarditis stigmata noted. - Back Exam Back exam: Present: normal inspection. Absent: paraspinal tenderness, vertebral tenderness - Neurological Exam Neurological exam: Present: alert, oriented X3. Absent: no focal deficits - Psychiatric Psychiatric exam: Present: normal affect, normal mood - Skin Skin exam: Present: dry, intact, normal color, warm - Additional findings Additional findings: PICC line noted to the RUE with transparent dressing C/D/I. Infectious Disease CN: Results - Labs CBC & Chem 7: 07/31/16 03:35 07/31/16 03:35 Cultures: Cultures 07/30/16 11:20 Blood Culture - Preliminary Peripheral Venipuncture No growth. Consult Discharge Plan - Plan Additional Instructions: Follow up with [facility] 08/01/16 at 1100. [address]. Referrals: Migdalia Nicholson [employer] TECHNICIAN [Advanced Practice Nurse] - 08/14/16 2:00 pm Maria Teresa Gilliam CNP [Primary Care Provider] - 08/06/16 4:00 pm (Please follow up as schedule...) Prescriptions: Ciprofloxacin [Cipro] 500 mg PO BID 14 Days Gentamicin in NaCl, Iso-Osm [Gentamicin 80 mg/Ns 100 ml Pb] 80 mg IV Q8H 14 Days Vancomycin HCl in Dextrose 5 % [Vancomycin 750 mg/250 ml-D5w] 1,250 mg IV Q12H 28 Days
[2016-07-31] MEDS ORDERED: Lidocaine -MPF 1% 5 ML AMPUL INFILT ONE (12:21)
[2016-07-31] MEDS: Gentamicin 80 MG in 0.9 % Sodium Chloride 100 ML IVPB SCH ×2 (13:05→20:16)
--- NOTE | 2016-07-31 13:45 | Discharge Summary ---
<Malina Acuna - Last Filed: 08/01/16 13:23> Date of Encounter: 08/01/16 Time of Encounter: 08:19 - Discharge Diagnosis (1) Endocarditis Priority: Primary Status: Acute Qualifiers: Endocarditis type: infective Infective endocarditis organism: bacterial Chronicity: acute Qualified Code(s): I33.0 - Acute and subacute infective endocarditis (2) COPD (chronic obstructive pulmonary disease) Priority: Secondary Status: Chronic Qualifiers: COPD type: unspecified COPD Qualified Code(s): J44.9 - Chronic obstructive pulmonary disease, unspecified (3) HTN (hypertension) Priority: Secondary Status: Chronic Qualifiers: Hypertension type: essential hypertension Qualified Code(s): I10 - Essential (primary) hypertension (4) Tobacco abuse Priority: Secondary Status: Chronic (5) MARYCARMEN (obstructive sleep apnea) Priority: Secondary Status: Chronic (6) Anxiety Priority: Secondary Status: Chronic - Discharge Medications Prescriptions: Oxycodone HCl/Acetaminophen [Percocet 5-325 mg Tablet] 1 each PO Q6H PRN #20 tablet PRN Reason: Pain Home Medications: Albuterol Sulfate [Albuterol Inhaler] 2 puff IH Q4HR 05/20/15 [History] Buspirone HCl [Buspar] 30 mg PO BID 05/20/15 [History] CloNIDine HCl 0.1 mg PO BID 05/20/15 [History] Diazepam [Valium] 5 mg PO TID 05/20/15 [History] HydrOXYzine Pamoate 50 mg PO BID 05/20/15 [History] Lisinopril-HCTZ 20-12.5 [Prinzide 20-12.5] 1 tab PO BID 05/20/15 [History] Ranitidine HCl [Zantac] 150 mg PO BID 05/20/15 [History] Budesonide/Formoterol 80/4.5 [Symbicort 80/4.5] 2 puff IH BID 07/30/16 [History ] Ipratropium/Albuterol Neb [Duoneb] 3 ml IH Q6HR 07/30/16 [History] Ciprofloxacin [Cipro] 500 mg PO BID 14 Days 07/31/16 [Rx] Gentamicin in NaCl, Iso-Osm [Gentamicin 80 mg/Ns 100 ml Pb] 80 mg IV Q8H 14 Days 07/31/16 [Rx] Patient Taking Own Medication 0 each PO BID each 07/31/16 [Rx] Vancomycin HCl in Dextrose 5 % [Vancomycin 750 mg/250 ml-D5w] 1,250 mg IV Q12H 28 Days 07/31/16 [Rx] Oxycodone HCl/Acetaminophen [Percocet 5-325 mg Tablet] 1 each PO Q6H PRN #20 tablet 08/01/16 [Rx] Allergies/Adverse Reactions: Allergies Penicillins Allergy (Verified 05/20/15 10:19) Hives Biubqhk-Dnm-Dog Reductase Inhibitor [Statins] Allergy (Verified 05/20/15 10:19) Muscle Pain budesonide [From Symbicort] Adverse Reaction (Unknown, Verified 07/30/16 15:33) THRUSH Formoterol [From Symbicort] Adverse Reaction (Unknown, Verified 07/30/16 15:33) THRUSH Procedures/tests Complete & Pending: Procedures Performed prior 72 hours Category Date Time Status CT abd pelvis w iv and oral [CT] Routine Cat Scan 07/31/16 13:30 Ordered ECG 12 lead ECG [ECG] Routine Y 07/31/16 04:08 Completed Date of admission: 07/30/16 13:39 Primary care physician: Maria Teresa Gilliam CNP Consults: 07/30/16 15:04 Consult to Infectious Diseases [CONS] Routine Consulting Provider: Infectious Disease [facility] Reason for Consult: endocarditis Call Completed: Yes 07/31/16 10:49 Consult to PICC team [Consult to Invasive Line Access Team] [CONS] Routine Reason for Consult: Want PICC line please. Line Type: PICC 07/31/16 11:51 Consult to Audiology [CONS] Routine Consulting Provider: Migdalia Nicholson Reason for Consult: Need baseline hearing test. Will be on residential Gentamicin. Time Notified: 11:52 Call Completed: Yes 07/31/16 12:21 Consult to Invasive Line Access Team [CONS] Routine Reason for Consult: Picc Line Insertion Line Type: PICC Discharging clinician: Edvin Erwin Anticipated date of discharge: 08/01/16 - Patient Status Disposition: Home, Self-Care Condition: Good Functional capacity at discharge: independent ambulation Overall status at discharge: patient is progressing back to baseline - Discharge Instructions Instructions: Ciprofloxacin (By mouth), Oxycodone/Acetaminophen (By mouth), Gentamicin (Injection), Vancomycin (Injection), Endocarditis (DC), Peripherally Inserted Central Catheters and Midline Catheters (DC) Follow Up With: Migdalia Nicholsno CNP [Advanced Practice Nurse] - 08/14/16 2:00 pm Maria Teresa Gilliam CNP [Primary Care Provider] - 08/06/16 4:00 pm (Please follow up as schedule...) Additional Instructions: Follow up with [facility] 08/01/16 at 1100[address]. Follow up with ID 08/15/15 at 1400. Follow up with your primary care physician within 3-5 days. Check labs twice weekly for the entire duration of treatment: CBC, BMP and vanc and gentamicin levels per protocol. . - Diet and Activity Activity: resume usual activities as tolerated Diet: diabetic diet Hospital course: Mr. Harris is a 46 year old male with a past medical history of COPD, GERD, hypertension, anxiety, and depression. He states that on June 18 he underwent removal of all of his top teeth in preparation for dentures secondary to multiple dental caries. He states that prior to that surgery he had received a seven-day course of oral clindamycin, which he finished. He states he went back to surgery and underwent removal of bone spurs approximately 2 weeks later. He states that he received no prophylactic or postop antibiotics with that procedure.The patient was admitted to the hospital July 30 for endocarditis. The patient was originally in the emergency department on July 20 with complaints of fevers, chills, generalized malaise and fatigue. after dental procedure. There was concern about possible endocarditis and the patient was transferred to [facility] due to ER staff thinking there is no infectious disease coverage here. At [facility], the patient underwent a transthoracic echo that revealed a mitral valve echodensity concerning for possible vegetation. Additionally, the patient had a throat culture that was positive for group A strep. Blood cultures obtained at [facility] were negative. The patient ended up signing out AMA, but was readmitted at [facility] later that afternoon after the family talked him into going back. The patient was there until July 24, and again signed out AMA. He presented to the emergency department at [facility] and was subsequently admitted there. Again, blood cultures were drawn and were negative 3 out of 3 sets. Patient was started on IV vancomycin and ertapenem with plans to treat for 4-6 weeks, but the patient ended up signing out AMA again. Records from [facility] revealed that they also did Bartonella, Brucella, and Q fever serologies, which were all negative. Upon arrival to our ER, the patient was afebrile, but he was mildly tachycardic. His white blood cell count had trended down to 14.8 from 30. A CMP was significant for mildly elevated LFTs. Lactic acid was normal. Troponin was negative. Blood cultures obtained in the emergency department are no growth to date 2 sets. Repeat labs this morning revealed a white Blood cell count is down to 12.7. Currently, the patient is on IV vancomycin and IV ertapenem. ID was consulted for further recommendations in treatment. Since BC were negative at [facility], a PICC line was placed. They saw no evidence of metastatic disease,no endocarditis stigmata noted. The patient has one major and one minor Modified Reilly's Criteria. There is concern for transient bacteremia secondary to recent dental procedure. ID recommends continuing vancomycin IV, at pharmacy dose for 6 weeks. Goal trough approximately 15. Discontinue Ertapenem and start Gentamicin 1mg/kg IV Q8H x2 weeks (unable to use amp/sulbactam due to PCN allergy) and Cipro 500mg PO BID. The patient will need a baseline hearing test due to the potential for ototoxicity related to the gentamicin, and is scheduled with audiology at 11AM 08/01. Duration of treatment depends on the clinical picture, but likely 6 weeks of IV antibiotics will be required. The patient will require twice weekly labs to be completed, which he states he will be compliant with:CBC, BMP and vanc and gentamicin levels per protocol. He will also require weekly PICC care per protocol. The patient will need to follow up with ID 08/15/15 at 1400. He will also need a repeat [place] ECHO after treatment is completed to ensure the vegetation is no longer present. - Time Spent with Patient Total time spent providing and/or coordinating discharge services: - Constitutional Vitals: Temp Pulse Resp BP Pulse Ox 97.7 F 68 16 121/78 96 07/31/16 12:14 07/31/16 12:14 07/31/16 12:14 07/31/16 12:14 07/31/16 12:14 General appearance: Present: cooperative, A&O X 3, pleasant, no acute distress, answers questions appropriately - Head Head exam: Present: atraumatic, normocephalic - Neck Neck exam general surgery: Present: supple, trachea midline. Absent: lymphadenopathy - Respiratory Respiratory exam: Present: CTAB. Absent: accessory muscle use, rales, rhonchi, wheezes - Cardiovascular Cardiovascular exam: Present: RRR, +S1, +S2. Absent: diastolic murmur, gallop, rubs, systolic murmur - GI/Abdominal GI/Abdominal exam: Present: normal bowel sounds, soft, no peritoneal signs. Absent: distended, tenderness - Extremities Exam Extremities exam: Present: warm, radial pulses palpable and symetrical. Absent : calf tenderness, cyanotic, pedal edema - Neurological Exam Neurological exam: Present: oriented X3, no focal deficits. Absent: pronater drift, facial droop, speech deficit - Psychiatric Psychiatric exam: Present: anxious - Skin Skin exam: Present: dry, intact. Absent: diaphoretic, erythema <Edvin Erwin - Last Filed: 08/01/16 14:05> - Discharge Diagnosis (1) Endocarditis Status: Acute Qualifiers: Endocarditis type: infective Infective endocarditis organism: bacterial Chronicity: acute Qualified Code(s): I33.0 - Acute and subacute infective endocarditis (2) Abdominal pain Priority: Secondary Status: Acute Qualifiers: Abdominal location: periumbilical Qualified Code(s): R10.33 - Periumbilical pain (3) Anxiety Status: Chronic (4) Diabetes mellitus Priority: Secondary Status: Chronic Qualifiers: Diabetes mellitus type: type 2 Diabetes mellitus complication status: without complication Diabetes mellitus middle or intermediate school principal insulin use: without custodial use Qualified Code(s): E11.9 - Type 2 diabetes mellitus without complications (5) MARYCARMEN (obstructive sleep apnea) Status: Chronic (6) COPD (chronic obstructive pulmonary disease) Status: Chronic Qualifiers: COPD type: unspecified COPD Qualified Code(s): J44.9 - Chronic obstructive pulmonary disease, unspecified (7) HTN (hypertension) Status: Chronic Qualifiers: Hypertension type: essential hypertension Qualified Code(s): I10 - Essential (primary) hypertension (8) Tobacco abuse Status: Chronic Date of admission: 08/01/16 01:03 Primary care physician: Maria Teresa Gilliam CNP Hospital course: Mr. Harris is a 46 year old male - Time Spent with Patient Total time spent providing and/or coordinating discharge services: - Constitutional Vitals: Temp Pulse Resp BP Pulse Ox 98.7 F 79 16 155/81 98 08/01/16 07:46 08/01/16 07:46 08/01/16 07:46 08/01/16 07:46 08/01/16 07:46 - Attending Attestation I examined this patient and my medical decision-making was reviewed with the Resident Physician on 08/01/16. I agree with the documented findings, disposition and treatment plan as described except to the extent set forth below. Mr. Harris is feeling OK. No new issues overnight. Ready for discharge. Pt afebrile. Vitals stable at this time. Exam Alert. Heart reg Lungs clear. I/P 1. Culture negative endocarditis - on IV abx 2. Anxiety Further diagnoses and plan as above.
--- NOTE | 2016-07-31 16:24 | Electrocardiograph Report ---
[address] [address] Test Date: 2016-07-30 Pat Name: Pedro Harris Department: 103 Room: 2A14 Gender: M Change Management: MARGARITA : 1970 Requested By: Anton Dunbar Order Number: [id number] Reading MD: Danyel Olsen MD Measurements Intervals [place] Rate: 71 P: 56 [place]: 161 QRS: 43 QRSD: 98 T: 13 QT: 377 QTc: 400 Interpretive Statements SINUS RHYTHM Electronically Signed On 07-31-2016 16:22:59 EDT by Danyel Olsen MD
--- NOTE | 2016-07-31 18:14 | Electrocardiograph Report ---
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
[2016-08-01] MEDS: Vancomycin 1,250 MG in D5% in Water 250 ML IVPB SCH (00:59)
[2016-08-01] MEDS: *HR* OxyCODONE/APAP 5/325 TABLET PO PRN ×2 (01:00→04:53)
[2016-08-01 03:54] LABS: Basophils # 0.1 K/mcL (0.0-0.2); Basophils % 0.7 %; Eosinophils # 0.3 K/mcL (0.0-0.6); Eosinophils % 2.3 %; Hematocrit 41.4 % (37.5-50.1); Hemoglobin 13.8 g/dL (12.9-16.9); Immature Granulocytes % 1.6 % (0-4); Lymphocytes # 3.9 K/mcL (0.6-4.6); Lymphocytes % 27.7 %; Mean Corpuscular HGB Conc 33.3 g/dL (31.6-35.5); Mean Corpuscular Hemoglobin 28.3 pg (28.0-33.3); Mean Corpuscular Volume 84.8 fL (83.0-100.0); Mean Platelet Volume 9.6 fL (9.4-12.4); Monocytes % 6.7 %; Neutrophils # 8.6 K/mcL (1.6-8.9); Platelet Count 283 K/mcL (140-400); Red Blood Count 4.88 M/mcL (4.19-5.50); Red Cell Distribution Width 12.9 % (11.5-14.5)
[2016-08-01] MEDS: Gentamicin 80 MG in 0.9 % Sodium Chloride 100 ML IVPB SCH (04:06)
[2016-08-01 04:09] LABS: BUN/Creatinine Ratio 13 (6-26); Blood Urea Nitrogen 11 mg/dL (8-26); Calcium 9.7 mg/dL (8.6-10.8); Carbon Dioxide 27 mEq/L (19-29); Chloride 99 mEq/L (98-109); Glucose 125 mg/dL (70-99); Osmolality,Calculated 281 (280-300); Potassium 4.1 mEq/L (3.5-4.5); Sodium 135 mEq/L (136-145); eGFR For African Americans > 60 (> 60); eGFR For Non-African Americans > 60 (> 60)
[2016-08-01 07:46] VITALS: BP 155/81
[2016-08-01] MEDS: RANITIDINE 150 MG PO SCH (08:13)
[2016-08-01] MEDS: cloNIDine HCl 0.1 MG TABLET PO SCH (08:13)
[2016-08-01] MEDS: diazePAM 5 MG TABLET PO SCH (08:13)
[2016-08-01] MEDS: Lisinopril-HCTZ 20-12.5mg TABLET PO SCH (08:13)
[2016-08-01] MEDS: hydrOXYzine pamoate 25 MG CAPSULE PO SCH (08:13)
[2016-08-01] MEDS: Nicotine 21 MG PATCH.TD24 TD SCH (08:13)
[2016-08-01] MEDS ORDERED: Vancomycin 1,250 MG in D5% in Water 250 ML IVPB SCH (09:00)
[2016-08-01] MEDS ORDERED: Aminoglycoside Consult 1 EACH MC ONE (09:59)
--- NOTE | 2016-08-01 13:19 | Physician Discharge Referral ---
Home Health/Hosp Referral Info Transfer to: Home Health Attending Provider: Edvin Erwin DO Provider in Charge Post Discharge: PCP - Diagnosis (1) Endocarditis Priority: Primary Status: Acute (2) COPD (chronic obstructive pulmonary disease) Priority: Secondary Status: Chronic (3) HTN (hypertension) Priority: Secondary Status: Chronic (4) Tobacco abuse Priority: Secondary Status: Chronic (5) MARYCARMEN (obstructive sleep apnea) Priority: Secondary Status: Chronic (6) Anxiety Priority: Secondary Status: Chronic - Respiratory Orders Smoking Cessation: Smoking cessation has been advised. For more information, call the [place] [employer] Quit Line at 2-224-SMBK-NOW. - Diet/Nutrition Diet/Nutrition Orders: Regular - Activity Activity Orders: Up ad maicol - Services Needed Following services are medically necessary services: Home Infusion Other Treatments: Check labs twice weekly for the entire duration of treatment: CBC, BMP and vanc and gentamicin levels per protocol. Gentamicin in NaCl, Iso-Osm [Gentamicin 80 mg/Ns 100 ml Pb] 80 mg IV Q8H 14 Days Vancomycin HCl in Dextrose 5 % [Vancomycin 750 mg/250 ml-D5w] 1,250 mg IV Q12H 6weeks - Transfer Medications Prescriptions: Oxycodone HCl/Acetaminophen [Percocet 5-325 mg Tablet] 1 each PO Q6H PRN #20 tablet PRN Reason: Pain Home Medications: Albuterol Sulfate [Albuterol Inhaler] 2 puff IH Q4HR 05/20/15 [History] Buspirone HCl [Buspar] 30 mg PO BID 05/20/15 [History] CloNIDine HCl 0.1 mg PO BID 05/20/15 [History] Diazepam [Valium] 5 mg PO TID 05/20/15 [History] HydrOXYzine Pamoate 50 mg PO BID 05/20/15 [History] Lisinopril-HCTZ 20-12.5 [Prinzide 20-12.5] 1 tab PO BID 05/20/15 [History] Ranitidine HCl [Zantac] 150 mg PO BID 05/20/15 [History] Budesonide/Formoterol 80/4.5 [Symbicort 80/4.5] 2 puff IH BID 07/30/16 [History ] Ipratropium/Albuterol Neb [Duoneb] 3 ml IH Q6HR 07/30/16 [History] Ciprofloxacin [Cipro] 500 mg PO BID 14 Days 07/31/16 [Rx] Gentamicin in NaCl, Iso-Osm [Gentamicin 80 mg/Ns 100 ml Pb] 80 mg IV Q8H 14 Days 07/31/16 [Rx] Patient Taking Own Medication 0 each PO BID each 07/31/16 [Rx] Vancomycin HCl in Dextrose 5 % [Vancomycin 750 mg/250 ml-D5w] 1,250 mg IV Q12H 28 Days 07/31/16 [Rx] Oxycodone HCl/Acetaminophen [Percocet 5-325 mg Tablet] 1 each PO Q6H PRN #20 tablet 08/01/16 [Rx] Allergies/Adverse Reactions: Allergies Penicillins Allergy (Verified 05/20/15 10:19) Hives Dqvkein-Shl-Azd Reductase Inhibitor [Statins] Allergy (Verified 05/20/15 10:19) Muscle Pain budesonide [From Symbicort] Adverse Reaction (Unknown, Verified 07/30/16 15:33) THRUSH Formoterol [From Symbicort] Adverse Reaction (Unknown, Verified 07/30/16 15:33) THRUSH Certification: Further, I certify that my clinical findings support that this patient is homebound (i.e. absences from home require considerable and taxing effort and are for medical reasons or taoism services or infrequently or short duration when for other reasons) because: Homebound Reason: Patient requires assistance of a person or device to safely leave home Attestation: My signature below is to certify that this patient is under my care and that I, or nurse practitioner, or a physician's home based assistant working with me, has a face-to -face encounter with this patient.
[2016-08-01] MEDS ORDERED: Vancomycin 1,500 MG in D5% in Water 250 ML IVPB SCH (20:00)
== END 2016-08-01 10:00 | disposition home or self-care (01) | DRG 193 ==
LOC: EMEROO 10:23 → 2ANU 10:23
PROVIDERS: ADMIT Internal Medicine; ATTEND Internal Medicine

== ENCOUNTER 2016-08-22 16:06 | Observation (INO) ==
[2016-08-22] MEDS ORDERED: 0.9 % Sodium Chloride 500 ML IVC ONE (16:24)
[2016-08-22] MEDS ORDERED: methylPREDNISolone 125 MG/2 ML VIAL IVP ONE (16:24)
--- NOTE | 2016-08-22 16:27 | Emergency Department Note ---
Disposition Clinical Impression: Endocarditis Qualifiers: Endocarditis type: infective Infective endocarditis organism: bacterial Chronicity: acute Qualified Code(s): I33.0 - Acute and subacute infective endocarditis Disposition: Admitted As Inpatient Condition: Fair Time of Disposition: 17:49 Chest Pain HPI - General Chief Complaint: ED Chest Pain Stated Complaint: CP/SOB/Rash Time Seen by Provider: 08/22/16 16:07 Source: patient, EMS Limitations: no limitations Vital Signs Reviewed: Yes Nursing Notes Reviewed: Yes - History of Present Illness HPI Narrative: 46-year-old with a history of endocarditis being treated with IV vancomycin for the last 4-5 weeks. Patient's trough levels were high and it was held for the last couple days he took vancomycin again today and developed a rash all over. Patient took Benadryl prior to arrival per squad. He was having chest pain and was given nitroglycerin and aspirin also. Pt complaint: chest pain Onset (ago): day(s) Duration: constant Onset: during rest Pain Location: substernal, left chest Severity scale (1-10): 6 Quality: tightness, aching Pain Radiation: none Improves with: nothing Worsens with: nothing - Related Data Home Medications Medication Instructions Recorded Confirmed Albuterol Sulfate [Albuterol 2 puff IH Q4HR 05/20/15 07/30/16 Inhaler] Buspirone HCl [Buspar] 30 mg PO BID 05/20/15 07/30/16 CloNIDine HCl 0.1 mg PO BID 05/20/15 07/30/16 Diazepam [Valium] 5 mg PO TID 05/20/15 07/30/16 HydrOXYzine Pamoate 50 mg PO BID 05/20/15 07/30/16 Lisinopril-HCTZ 20-12.5 [Prinzide 1 tab PO BID 05/20/15 07/30/16 20-12.5] Ranitidine HCl [Zantac] 150 mg PO BID 05/20/15 07/30/16 Budesonide/Formoterol 80/4.5 2 puff IH BID 07/30/16 07/30/16 [Symbicort 80/4.5] Ipratropium/Albuterol Neb [Duoneb] 3 ml IH Q6HR 07/30/16 07/30/16 Previous Rx's Medication Instructions Recorded Ciprofloxacin [Cipro] 500 mg PO BID 14 Days 07/31/16 Gentamicin in NaCl, Iso-Osm 80 mg IV Q8H 14 Days 07/31/16 [Gentamicin 80 mg/Ns 100 ml Pb] Patient Taking Own Medication 0 each PO BID each 07/31/16 Vancomycin HCl in Dextrose 5 % 1,250 mg IV Q12H 28 Days 07/31/16 [Vancomycin 750 mg/250 ml-D5w] Oxycodone HCl/Acetaminophen 1 each PO Q6H PRN #20 tablet 08/01/16 [Percocet 5-325 mg Tablet] Allergies Allergy/AdvReac Type Severity Reaction Status Date / Time Penicillins Allergy Hives Verified 05/20/15 10:19 Txedqmv-Lfb-Vji Reductase Allergy Muscle Pain Verified 05/20/15 10:19 Inhibitor [Statins] budesonide [From Symbicort] AdvReac Unknown THRUSH Verified 07/30/16 15:33 Formoterol [From Symbicort] AdvReac Unknown THRUSH Verified 07/30/16 15:33 All systems ED: reviewed and negative except as stated. Constitutional: Denies: fever, chills, weakness, weight change Eyes: Denies: eye pain, eye discharge, vision change ENT ED: Denies: ear pain, throat pain, dental pain, hearing loss, epistaxis, congestion, dysphagia Cardiovascular: Reports: chest pain. Denies: palpitations, dyspnea on exertion , edema, syncope Respiratory: Denies: cough, dyspnea, wheezes, hemoptysis, stridor Gastrointestinal: Denies: abdominal pain, nausea, vomiting, diarrhea, constipation, hematemesis, melena, hematochezia Genitourinary: Denies: urgency, dysuria, frequency, hematuria Musculoskeletal: Denies: back pain, neck pain, arthralgia, myalgia Integumentary: Denies: rash, abrasion, lesions Neurological: Denies: headache, weakness, numbness, paresthesias, confusion, abnormal gait, vertigo Psychiatric: Denies: anxiety, depression, suicidal thoughts, homicidal thoughts , auditory hallucinations, visual hallucinations Endocrine: Denies: fatigue Hematological/Lymphatic: Denies: easy bleeding, easy bruising Allergic/Immunologic: Denies: facial swelling, urticaria Chest Pain PMH - Past Medical History Medical history: Reports: COPD, GERD, hyperlipidemia, hypertension, other Surgical history: Reports: orthopedic, other (Trigger finger release, dental extraction) Psychiatric history: Reports: anxiety, depression, panic disorder - Social History Smoking Status: Current every day smoker Alcohol use: Reports: none Drug use: Reports: marijuana Physical Exam - General Limitations: no limitations General appearance: alert, in no apparent distress Course - Reevaluation(s) Reevaluation #1: 46-year-old with a history of endocarditis who comes in with this increasing chest pain and fever. Patient was on vancomycin and meropenem. Trough levels were high 2 days ago and the vancomycin was held. Started back on the vancomycin day developed a red rash. Patient's white count is crept up also. Patient will be admitted for further evaluation and treatment repeat echo. Time: 17:48 - Consultations Consultation #1: Discussed with Dr. Roca, admit. Time: 17:48 Vital Signs Temperature 99.7 F H 08/22/16 16:07 Pulse Rate 112 08/22/16 16:07 Respiratory Rate 18 08/22/16 16:07 Blood Pressure 90/83 08/22/16 16:07 O2 Sat by Pulse Oximetry 98 08/22/16 16:07 Temperature 99.7 F H 08/22/16 16:07 Pulse Rate 102 08/22/16 16:18 Respiratory Rate 19 08/22/16 16:18 Blood Pressure 94/10 08/22/16 16:18 O2 Sat by Pulse Oximetry 98 08/22/16 16:18 Oxygen Delivery Oxygen Delivery Room Air Chest Pain - Lab Data Result diagrams: 08/22/16 16:41 08/22/16 16:41 Lab Results 08/22/16 08/22/16 08/22/16 Range/Units 16:41 16:41 16:41 WBC 16.6 H (4.3-11.1) K/mcL RBC 4.52 (4.19-5.50) M/mcL Hgb 12.7 L (12.9-16.9) g/dL Hct 37.0 L (37.5-50.1) % MCV 81.9 L (83.0-100.0) fL MCH 28.1 (28.0-33.3) pg MCHC 34.3 (31.6-35.5) g/dL RDW 13.1 (11.5-14.5) % Plt Count 234 (140-400) K/mcL MPV 9.8 (9.4-12.4) fL Immature Gran % 0.8 (0-4) % Seg Neutrophils % 83.8 % Lymphocytes % 8.6 % Monocytes % 4.6 % Eosinophils % 1.9 % Basophils % 0.3 % Neutrophils # 13.9 H (1.6-8.9) K/mcL Lymphocytes # 1.4 (0.6-4.6) K/mcL Monocytes # 0.8 (0.0-1.3) K/mcL Eosinophils # 0.3 (0.0-0.6) K/mcL Basophils # 0.1 (0.0-0.2) K/mcL PT 13.9 H (9.4-12.1) Seconds INR 1.3 APTT 30.0 (26.0-36.0) Seconds Sodium (136-145) mEq/L Potassium (3.5-4.5) mEq/L Chloride (98-109) mEq/L Carbon Dioxide (19-29) mEq/L BUN (8-26) mg/dL Creatinine (0.72-1.25) mg/dL Est GFR ( Amer) (> 60) Est GFR (Non-Af Amer) (> 60) BUN/Creatinine Ratio (6-26) Glucose (70-99) mg/dL Calculated Osmolality (280-300) Calcium (8.6-10.8) mg/dL Troponin I (0-0.03) ng/mL B-Natriuretic Peptide < 10 (0-100) pg/mL 08/22/16 08/22/16 Range/Units 16:41 16:41 WBC (4.3-11.1) K/mcL RBC (4.19-5.50) M/mcL Hgb (12.9-16.9) g/dL Hct (37.5-50.1) % MCV (83.0-100.0) fL MCH (28.0-33.3) pg MCHC (31.6-35.5) g/dL RDW (11.5-14.5) % Plt Count (140-400) K/mcL MPV (9.4-12.4) fL Immature Gran % (0-4) % Seg Neutrophils % % Lymphocytes % % Monocytes % % Eosinophils % % Basophils % % Neutrophils # (1.6-8.9) K/mcL Lymphocytes # (0.6-4.6) K/mcL Monocytes # (0.0-1.3) K/mcL Eosinophils # (0.0-0.6) K/mcL Basophils # (0.0-0.2) K/mcL PT (9.4-12.1) Seconds INR APTT (26.0-36.0) Seconds Sodium 135 L (136-145) mEq/L Potassium 3.6 (3.5-4.5) mEq/L Chloride 103 (98-109) mEq/L Carbon Dioxide 22 (19-29) mEq/L BUN 23 (8-26) mg/dL Creatinine 2.28 H (0.72-1.25) mg/dL Est GFR ( Amer) 38 L (> 60) Est GFR (Non-Af Amer) 31 L (> 60) BUN/Creatinine Ratio 10 (6-26) Glucose 123 H (70-99) mg/dL Calculated Osmolality 285 (280-300) Calcium 8.8 (8.6-10.8) mg/dL Troponin I 0.00 (0-0.03) ng/mL B-Natriuretic Peptide (0-100) pg/mL
[2016-08-22 16:53] LABS: Eosinophils % 1.9 %; Hemoglobin 12.7 g/dL (12.9-16.9); Immature Granulocytes % 0.8 % (0-4); Lymphocytes % 8.6 %; Mean Corpuscular HGB Conc 34.3 g/dL (31.6-35.5); Mean Corpuscular Hemoglobin 28.1 pg (28.0-33.3); Mean Corpuscular Volume 81.9 fL (83.0-100.0); Mean Platelet Volume 9.8 fL (9.4-12.4); Monocytes % 4.6 %; Platelet Count 234 K/mcL (140-400); Red Blood Count 4.52 M/mcL (4.19-5.50); Red Cell Distribution Width 13.1 % (11.5-14.5); Segmented Neutrophils % 83.8 %
[2016-08-22 16:54] LABS: Basophils # 0.1 K/mcL (0.0-0.2); Basophils % 0.3 %; Eosinophils # 0.3 K/mcL (0.0-0.6); Lymphocytes # 1.4 K/mcL (0.6-4.6); Monocytes # 0.8 K/mcL (0.0-1.3); Neutrophils # 13.9 K/mcL (1.6-8.9)
[2016-08-22 17:00] LABS: INR 1.3; Prothrombin Time 13.9 Seconds (9.4-12.1)
[2016-08-22 17:07] LABS: Calcium 8.8 mg/dL (8.6-10.8); Potassium 3.6 mEq/L (3.5-4.5)
--- NOTE | 2016-08-22 19:06 | Internal Med History&Physical ---
Date of Encounter: 08/22/16 Time of Encounter: 18:52 Assessment and Plan (1) Endocarditis Current visit: No Status: Acute Recently admitted for infective endocarditis, ID following the patient. Patient on home IV infusion with IV antibiotics. Spoke with Migdalia Nicholson ID, will continue IV antibiotics, he already got vancomycin dose for today, will hold for now until further ID recommendtaion for possible red man syndrome. will order another set of blood cultures for new onset fever. repeat echo Qualifiers: Endocarditis type: infective Infective endocarditis organism: bacterial Chronicity: acute Qualified Code(s): I33.0 - Acute and subacute infective endocarditis (2) Diabetes mellitus Current visit: No Status: Chronic Qualifiers: Diabetes mellitus type: type 2 Diabetes mellitus complication status: without complication Diabetes mellitus terminal operations supervisor insulin use: without residential use Qualified Code(s): E11.9 - Type 2 diabetes mellitus without complications (3) HTN (hypertension) Current visit: No Status: Chronic Qualifiers: Hypertension type: essential hypertension Qualified Code(s): I10 - Essential (primary) hypertension (4) Anxiety Current visit: No Status: Chronic (5) Fever Current visit: Yes Status: Acute Unclear etiology, however has leukocytosis. We will send stool for C. difficile as he is having diarrhea too. Chest x-ray does not show any pneumonia. Will repeat echo . repeat blood cx. Qualifiers: Fever type: unspecified Qualified Code(s): R50.9 - Fever, unspecified (6) Diarrhea Current visit: Yes Status: Acute check for c.diff has been on IV antibiotics for the last 4 weeks. will start IVF. Qualifiers: Diarrhea type: unspecified type Qualified Code(s): R19.7 - Diarrhea, unspecified (7) Red man syndrome Current visit: Yes Status: Acute Possible red man syndrome from vancomycin. His vancomycin dose was already reduced by ID. He got his dose for today. We will hold until further ID recommendation. will give benadryl prn. Internal Medicine - H&P: HPI Chief complaint: chest pain, fever Admitted From: Home Plans for Post Hospital Care: Home History of present illness: Mr. Harris is a 46 year old male with a past medical history of COPD, GERD, hypertension, anxiety, and depression who was recently admitted here in July for infective endocarditis, ID is following the patient. Patient was discharged home with IV antibiotics Vanco gentamicin and ciprofloxacin for a total of 6 weeks treatment. He gets it via IV infusion with home health at home. He comes in today with complaints of fever and rash.he says the fever started 2 days ago and it was 101. he denies any cough, abdominal pain , n.v. he does report that he is having watery diarrhea that started today. he also says that he developed a red rash over his chest and face today. he had vanco troughs drawn that was high 2 days ago and his vanco dose was reduced to once daily. he says the chest pain comes and goes, no sob , no palpitations. Past Med Surg Social Fam HX - Past Medical History Medical history: COPD, GERD, hyperlipidemia, hypertension, other Psychiatric history: anxiety, depression, panic disorder - Past Surgical History Surgical History: orthopedic, other - Social History Smoking Status: Current every day smoker Smokeless Tobacco Status: No Alcohol use: none Drug use: marijuana - Family History Mother Adopted: No Family Member Ethnicity: Non- Living Status: Still Living Hx Family Cardiac Disorders: Yes (bypass surgery) Hx Family Respiratory Disorders: Yes (COPD) Hx Family Cancer: No Hx Family GI Disorders: No Hx Family Endocrine Disorder: No Hx Family Neuromuscular Disorders: No Hx Family Neurologic Disorders: No Hx Family HEENT Disorders: No Hx Family Autoimmune Disorders: No Internal Medicine - H&P: Meds Albuterol Sulfate [Albuterol Inhaler] 2 puff IH Q4HR 05/20/15 [History] Buspirone HCl [Buspar] 30 mg PO BID 05/20/15 [History] CloNIDine HCl 0.1 mg PO BID 05/20/15 [History] Diazepam [Valium] 5 mg PO QID 05/20/15 [History] HydrOXYzine Pamoate 50 mg PO BID 05/20/15 [History] Lisinopril-HCTZ 20-12.5 [Prinzide 20-12.5] 1 tab PO BID 05/20/15 [History] Ranitidine HCl [Zantac] 150 mg PO BID 05/20/15 [History] Budesonide/Formoterol 80/4.5 [Symbicort 80/4.5] 2 puff IH BID 07/30/16 [History ] Ipratropium/Albuterol Neb [Duoneb] 3 ml IH Q6HR 07/30/16 [History] L. Acidophilus/Pectin, [place] [Acidophilus Probiotic Capsule] 1 cap PO DAILY [History] Oxycodone HCl/Acetaminophen [Percocet 5-325 mg Tablet] 1 tab PO Q6H PRN [History] Sucralfate [Carafate] 1 gm PO BID 08/22/16 [History] Vancomycin HCl in Dextrose 5 % [Vancomycin 750 mg/250 ml-D5w] 1,250 mg IV DAILY 08/22/16 [History] Allergies Penicillins Allergy (Verified 05/20/15 10:19) Hives Hjuycmg-Ujm-Wcf Reductase Inhibitor [Statins] Allergy (Verified 05/20/15 10:19) Muscle Pain budesonide [From Symbicort] Adverse Reaction (Unknown, Verified 07/30/16 15:33) THRUSH Formoterol [From Symbicort] Adverse Reaction (Unknown, Verified 07/30/16 15:33) THRUSH All Systems PM: A 10-system review of systems was performed and is negative for pertinent findings except as documented above in the HPI. - Constitutional Vitals: Temp Pulse Resp BP Pulse Ox 100 F H 105 14 121/89 95 08/22/16 18:48 08/22/16 18:48 08/22/16 18:50 08/22/16 18:50 08/22/16 18:48 General appearance: Present: A&O X 3, no acute distress Exam: neck- supple has red macular rash over the chest and his face. chest- bl clear, no added sounds CVS-s1 and s2, no mr//g abd-soft,non tender, bs are present ext- no edema Internal Med - H&P Results - Labs CBC & Chem 7: 08/22/16 16:41 08/22/16 16:41
[2016-08-22] MEDS ORDERED: Naloxone 0.4 MG/ML INJ IVP PRN (19:18)
[2016-08-22] MEDS ORDERED: *HR* Morphine 2 MG/ML SYRINGE IVP ONE (19:20)
[2016-08-22] MEDS ORDERED: GENTAMICIN IVPB SCH (20:00)
[2016-08-22] MEDS ORDERED: SODIUM CHLORIDE 0.9% IVPB SCH (20:00)
[2016-08-22] MEDS: Budesonide/Formoterol 80/4.5 MDI IH SCH (20:15)
[2016-08-22] MEDS: 0.9 % Sodium Chloride 1,000 ML IVC SCH (20:35)
[2016-08-22] MEDS: cloNIDine HCl 0.1 MG TABLET PO SCH (20:40)
[2016-08-22] MEDS: hydrOXYzine pamoate 25 MG CAPSULE PO SCH (20:41)
[2016-08-22] MEDS: diazePAM 5 MG TABLET PO SCH (21:55)
[2016-08-22] MEDS: Lisinopril-HCTZ 20-12.5mg TABLET PO SCH (21:55)
[2016-08-23] MEDS: Acetaminophen 325 MG TABLET PO PRN ×2 (00:15→14:41)
[2016-08-23 03:39] LABS: Basophils % 0.4 %; Eosinophils % 0.2 %; Hematocrit 37.1 % (37.5-50.1); Hemoglobin 12.9 g/dL (12.9-16.9); Immature Platelets 3.9 % (1.1-6.1); Lymphocytes # 1.6 K/mcL (0.6-4.6); Lymphocytes % 16.1 %; Mean Corpuscular HGB Conc 34.8 g/dL (31.6-35.5); Mean Corpuscular Hemoglobin 28.9 pg (28.0-33.3); Mean Platelet Volume 9.7 fL (9.4-12.4); Monocytes # 0.1 K/mcL (0.0-1.3); Monocytes % 1.3 %; Neutrophils # 7.9 K/mcL (1.6-8.9); Platelet Count 255 K/mcL (140-400); Red Blood Count 4.47 M/mcL (4.19-5.50); Red Cell Distribution Width 13.2 % (11.5-14.5)
[2016-08-23] MEDS: *HR* OxyCODONE/APAP 5/325 TABLET PO PRN ×2 (03:44→07:47)
[2016-08-23 03:49] LABS: Calcium 9.2 mg/dL (8.6-10.8); Potassium 3.9 mEq/L (3.5-4.5)
[2016-08-23 04:52] LABS: Bilirubin,Urine Negative (Negative); Blood,Urine Negative (Negative); Clarity,Urine Clear (Clear); Color,Urine Yellow (Yellow); Glucose,Urine (UA) 100 mg/dL (Normal); Ketones,Urine Negative (Negative); Leukocyte Esterase,Urine Negative (Negative); Nitrite,Urine Negative (Negative); Protein,Urine 30 mg/dL (Neg-Trace); Specific Gravity,Urine 1.016 (1.010-1.025); Urobilinogen,Urine Normal (Normal)
[2016-08-23 04:53] LABS: Bacteria,Urine None Seen per hpf (None-Few); Hyaline Casts,Urine None Seen per lpf (None-Few); RBC,Urine 0-3 per hpf (0-3); Squamous Epithelial Cell,Urine Many per lpf (None-Few); WBC,Urine 0-3 per hpf (0-3)
[2016-08-23] MEDS: 0.9 % Sodium Chloride 1,000 ML IVC SCH (05:19)
[2016-08-23] MEDS ORDERED: *HR* Enoxaparin 40 MG/0.4 ML SYRINGE SQ SCH (06:00)
[2016-08-23] MEDS ORDERED: Lactobacillus 1 EACH CAP.SPRINK PO SCH (09:00)
[2016-08-23] MEDS: Lisinopril-HCTZ 20-12.5mg TABLET PO SCH (09:00)
[2016-08-23] MEDS: diazePAM 5 MG TABLET PO SCH ×2 (09:00→13:29)
[2016-08-23] MEDS: cloNIDine HCl 0.1 MG TABLET PO SCH (09:00)
[2016-08-23] MEDS: hydrOXYzine pamoate 25 MG CAPSULE PO SCH (09:00)
[2016-08-23] MEDS: Budesonide/Formoterol 80/4.5 MDI IH SCH (11:05)
--- NOTE | 2016-08-23 11:16 | ECHO - Doppler Report ---
Echocardiogram Name: Pedro Harris Date of Study: 08/23/2016 Date: 1970 Ht: 71.0 in Medical Record#: [id number] Age: 46 Wt: 190.0 lb Gender: Male BSA: 2.06 Order #: [id number] Location: [facility] Room #: 2A36 Reading Physician: Danyel Olsen MD, [facility] Hosting Engineer: Charity Rivera RVT, [facility] Ordering Physician: Sanjay Roca MD Primary Physician: Maria Teresa Gilliam CNP Indications: fever , h/o infective endocarditis Impressions: LVEF 60-65%. Normal left ventricular diastolic function. No significant valvular dysfunction. No evidence of vegetation, no significant regurgitation If clinical suspicion is high, [place] would provide improved diagnostic sensitivity Left Ventricular Wall Motion: Rest Echo Findings All wall segments showed normal motion. Findings: Study Quality * Technically adequate exam. Right Ventricle * Normal right ventricular structure and function. Left Atrium * Normal left atrial size. Right Atrium * Normal right atrial size. Aortic Valve * Trileaflet aortic valve with normal function. Mitral Valve * Normal mitral valve structure and function. Interatrial Septum * No evidence of PFO by color Doppler. Aorta * Normally sized aortic root. Pericardium * The pericardium appears normal. ECG Findings * Normal sinus rhythm. Left Ventricle * LVEF 60-65%. * Normal left ventricular diastolic function. IVC * Normal IVC dimensions and inspiratory collapse. Tricuspid Valve * No tricuspid stenosis. * No tricuspid regurgitation. * Unable to estimate RVSP due to lack of TR jet. History Hypertension Hypercholesteremia History of Smoking Years 20 Packs 1 Family History of CAD 11/12/2011 a Previous Echo was performed. Measurements: BP: 118/ 67 2D Normal Values RVIDd: 3.23 cm <2.7 cm IVSd: 1.39 cm 0.6 - 1.0 cm LVIDd: 4.84 cm 3.7 - 5.6 cm LVPWd: 1.01 cm 0.6 - 1.1 cm LVIDs: 2.95 cm 1.5 - 3.6 cm AO: 2.80 cm < 4.0 cm LA: 4.10 cm 2.0 - 4.0cm %FS: 39.00 cm >25 % LVOT Diam: 2.00 cm LA volume: 44 Mitral Valve Peak E:1.21 m/sec Peak A:.60 m/sec E/A Ratio:2 Peak E' Lat Avery:15.3 cm/s Peak E' Med Avery:11.6 cm/s E/E' Lat Ratio:7.9 E/E' Med Ratio:10.4 Updated by Danyel Olsen MD, [facility] on 08/23/2016 11:11:45 AM electronically signed on 08/23/2016 11:12:32 AM with status of Final Wall Motion [place]: 1=Normal, 2=Hypokinesis, 3=Akinesis, 4=Dyskinesis, 5=Aneurysmal, 6=Hyperkinetic, X=Not Visualized (Blank)=Missing
[2016-08-23 11:43] VITALS: BP 131/72
--- NOTE | 2016-08-23 11:46 | Discharge Summary ---
Date of Encounter: 08/23/16 Time of Encounter: 11:44 - Discharge Diagnosis (1) Endocarditis Priority: Primary Status: Acute Qualifiers: Endocarditis type: infective Infective endocarditis organism: bacterial Chronicity: acute Qualified Code(s): I33.0 - Acute and subacute infective endocarditis (2) Anxiety Priority: Secondary Status: Chronic (3) Diabetes mellitus Priority: Secondary Status: Chronic Qualifiers: Diabetes mellitus type: type 2 Diabetes mellitus complication status: without complication Diabetes mellitus alf insulin use: without alf use Qualified Code(s): E11.9 - Type 2 diabetes mellitus without complications (4) Diarrhea Priority: Secondary Status: Acute Qualifiers: Diarrhea type: unspecified type Qualified Code(s): R19.7 - Diarrhea, unspecified (5) Fever Priority: Secondary Status: Acute Qualifiers: Fever type: unspecified Qualified Code(s): R50.9 - Fever, unspecified (6) Red man syndrome Priority: Secondary Status: Acute (7) Renal insufficiency Priority: Secondary Status: Acute - Discharge Medications Prescriptions: DiphenhydraMINE [Benadryl] 50 mg PO DAILY PRN #30 capsule PRN Reason: itching Vancomycin/0.9 % Sod Chloride [Vanco 1.25 gm/250 ml-0.9% NaCl] 1.25 gm IV DAILY #20 plast..bag Home Medications: Albuterol Sulfate [Albuterol Inhaler] 2 puff IH Q4HR 05/20/15 [History] Buspirone HCl [Buspar] 30 mg PO BID 05/20/15 [History] CloNIDine HCl 0.1 mg PO BID 05/20/15 [History] Diazepam [Valium] 5 mg PO QID 05/20/15 [History] HydrOXYzine Pamoate 50 mg PO BID 05/20/15 [History] Ranitidine HCl [Zantac] 150 mg PO BID 05/20/15 [History] Budesonide/Formoterol 80/4.5 [Symbicort 80/4.5] 2 puff IH BID 07/30/16 [History ] Ipratropium/Albuterol Neb [Duoneb] 3 ml IH Q6HR 07/30/16 [History] L. Acidophilus/Pectin, [place] [Acidophilus Probiotic Capsule] 1 cap PO DAILY [History] Oxycodone HCl/Acetaminophen [Percocet 5-325 mg Tablet] 1 tab PO Q6H PRN [History] Sucralfate [Carafate] 1 gm PO BID 08/22/16 [History] DiphenhydraMINE [Benadryl] 50 mg PO DAILY PRN #30 capsule 08/23/16 [Rx] Vancomycin/0.9 % Sod Chloride [Vanco 1.25 gm/250 ml-0.9% NaCl] 1.25 gm IV DAILY #20 plast..bag 08/23/16 [Rx] Allergies/Adverse Reactions: Allergies Penicillins Allergy (Verified 05/20/15 10:19) Hives Fkvpqzu-Fna-Heu Reductase Inhibitor [Statins] Allergy (Verified 05/20/15 10:19) Muscle Pain budesonide [From Symbicort] Adverse Reaction (Unknown, Verified 07/30/16 15:33) THRUSH Formoterol [From Symbicort] Adverse Reaction (Unknown, Verified 07/30/16 15:33) THRUSH Procedures/tests Complete & Pending: Procedures Performed prior 72 hours Category Date Time Status EV echocardiogram Routine Y 08/23/16 19:21 Completed Date of admission: 08/22/16 17:56 Primary care physician: Maria Teresa Gilliam CNP Consults: 08/23/16 07:39 Consult to Infectious Diseases [CONS] Routine Consulting Provider: Infectious Disease Odalys Reason for Consult: Infective endocarditis Time Notified: 07:39 Call Completed: Yes Discharging clinician: Sander Coleman Anticipated date of discharge: 08/23/16 - Patient Status Disposition: Home, Self-Care Condition: Good Functional capacity at discharge: independent ambulation Overall status at discharge: patient is progressing back to baseline - Discharge Instructions Follow Up With: Maria Teresa Gilliam CNP [Primary Care Provider] - (In one week) Forms: ED Satisfaction Letter Additional Instructions: Follow up with infectious disease in one week - Diet and Activity Activity: increase activity as tolerated Diet: diabetic diet, low fat, low cholesterol, low salt diet Hospital course: Mr. Harris is a 46 year old male with history of essential hypertension, diabetes who is currently being treated for infective endocarditis with IV vancomycin, oral ciprofloxacin. He was observed in the hospital after he presented with erythematous rash on his chest wall and trunk along with fever and night sweats for one day. Also had a slightly elevated WBC count at 16.6. He was treated symptomatically for his symptoms. His rash appears to be related to red man syndrome due to vancomycin. To prevent further episodes of this, he is recommended to take Benadryl prior to vancomycin infusion. Patient also has developed kidney injury likely related to vancomycin use medications. Did renal function has been stable over the past week and he has not had any noticeable decrease in his urine output. However he does require the vancomycin to treat his endocarditis which will be dosed renally. He also takes lisinopril and hydrochlorothiazide. I will stop these medications as patient's blood pressure is currently well controlled. He can follow up further with his primary care provider. Patient also had diarrhea prior to presentation. C. difficile was unable to be checked as patient's diarrhea resolved. - Time Spent with Patient Total time spent providing and/or coordinating discharge services: Greater than 30 minutes (35 min) - Constitutional Vitals: Temp Pulse Resp BP Pulse Ox 97.9 F 74 18 131/72 98 08/23/16 11:40 08/23/16 11:40 08/23/16 11:40 08/23/16 11:40 08/23/16 11:40 General appearance: Present: A&O X 3, no acute distress, answers questions appropriately - Respiratory Respiratory exam: Present: chest wall tenderness (Left-sided), CTAB. Absent: accessory muscle use, rales, rhonchi, wheezes - Cardiovascular Cardiovascular exam: Present: RRR, +S1, +S2. Absent: diastolic murmur, gallop, rubs, systolic murmur - GI/Abdominal GI/Abdominal exam: Present: normal bowel sounds, soft, no peritoneal signs. Absent: distended, tenderness - Skin Skin exam: Present: dry, erythema (On trunk and chest wall improving), intact - Attending Attestation This document has been at least partially created by [employer] recognition technology by Dr. Coleman. Errors in grammar, wording or other phrases may exist. If errors are found after the documentation is signed, they will be addressed individually in the addendum section of this document when appropriate.
[2016-08-23] MEDS ORDERED: Gentamicin 120 MG in 0.9 % Sodium Chloride 100 ML IVPB ONE (11:53)
[2016-08-23] MEDS ORDERED: Vancomycin 1,250 MG in D5% in Water 250 ML IVPB ONE (11:56)
--- NOTE | 2016-08-23 12:24 | Physician Discharge Referral ---
Home Health/Hosp Referral Info Transfer to: Home Health Provider in Charge Post Discharge: PCP - Diagnosis (1) Endocarditis Priority: Primary Status: Acute (2) Anxiety Priority: Secondary Status: Chronic (3) Diabetes mellitus Priority: Secondary Status: Chronic (4) Diarrhea Priority: Secondary Status: Acute (5) Fever Priority: Secondary Status: Acute (6) Red man syndrome Priority: Secondary Status: Acute (7) Renal insufficiency Priority: Secondary Status: Acute - Respiratory Orders Smoking Cessation: Smoking cessation has been advised. For more information, call the [employer] Quit Line at 0-413-QUDS-NOW. - Diet/Nutrition Diet/Nutrition Orders: Cardiac (and diabetic), No Concentrated Sweets - Activity Activity Orders: Ambulate - Services Needed Following services are medically necessary services: [facility] Care Orders: Basic panel and vancomycin trough on Thursday and as per PCP/ pharmacy. - Transfer Medications Prescriptions: DiphenhydraMINE [Benadryl] 50 mg PO DAILY PRN #30 capsule PRN Reason: itching Vancomycin/0.9 % Sod Chloride [Vanco 1.25 gm/250 ml-0.9% NaCl] 1.25 gm IV DAILY #20 plast..bag Home Medications: Albuterol Sulfate [Albuterol Inhaler] 2 puff IH Q4HR 05/20/15 [History] Buspirone HCl [Buspar] 30 mg PO BID 05/20/15 [History] CloNIDine HCl 0.1 mg PO BID 05/20/15 [History] Diazepam [Valium] 5 mg PO QID 05/20/15 [History] HydrOXYzine Pamoate 50 mg PO BID 05/20/15 [History] Ranitidine HCl [Zantac] 150 mg PO BID 05/20/15 [History] Budesonide/Formoterol 80/4.5 [Symbicort 80/4.5] 2 puff IH BID 07/30/16 [History ] Ipratropium/Albuterol Neb [Duoneb] 3 ml IH Q6HR 07/30/16 [History] L. Acidophilus/Pectin, [place] [Acidophilus Probiotic Capsule] 1 cap PO DAILY [History] Oxycodone HCl/Acetaminophen [Percocet 5-325 mg Tablet] 1 tab PO Q6H PRN [History] Sucralfate [Carafate] 1 gm PO BID 08/22/16 [History] DiphenhydraMINE [Benadryl] 50 mg PO DAILY PRN #30 capsule 08/23/16 [Rx] Vancomycin/0.9 % Sod Chloride [Vanco 1.25 gm/250 ml-0.9% NaCl] 1.25 gm IV DAILY #20 plast..bag 08/23/16 [Rx] Allergies/Adverse Reactions: Allergies Penicillins Allergy (Verified 05/20/15 10:19) Hives Omtngwo-Wvr-Jvn Reductase Inhibitor [Statins] Allergy (Verified 05/20/15 10:19) Muscle Pain budesonide [From Symbicort] Adverse Reaction (Unknown, Verified 07/30/16 15:33) THRUSH Formoterol [From Symbicort] Adverse Reaction (Unknown, Verified 07/30/16 15:33) THRUSH Certification: Further, I certify that my clinical findings support that this patient is homebound (i.e. absences from home require considerable and taxing effort and are for medical reasons or denominational services or infrequently or short duration when for other reasons) because: Homebound Reason: Patient requires assistance of a person or device to safely leave home (Patient requiring home IV antibiotic infusions) Attestation: My signature below is to certify that this patient is under my care and that I, or nurse practitioner, or a physician's museum assistant working with me, has a face-to -face encounter with this patient.
[2016-08-23] MEDS ORDERED: Aminoglycoside Consult 1 EACH MC ONE (16:39)
[2016-08-24] MEDS ORDERED: Gentamicin 90 MG in 0.9 % Sodium Chloride 100 ML IVPB SCH
--- NOTE | 2016-08-25 08:58 | Electrocardiograph Report ---
[place] [id number] Test Date: 2016-08-22 Pat Name: Pedro Harris Department: 102 Room: 2A Gender: M Saw Grinder: Fabián : 1970 Requested By: Morro Langley Order Number: [id number] Reading MD: Danyel Olsen MD Measurements Intervals [place] Rate: 103 P: 66 VA: 140 QRS: 68 QRSD: 94 T: 43 QT: 366 QTc: 426 Interpretive Statements SINUS TACHYCARDIA Electronically Signed On 08-25-2016 8:56:34 EDT by Danyel Olsen MD
== END 2016-08-23 16:40 | disposition home health service (06) ==
LOC: EMEROO 16:06 → 2ANU 16:06 → SUATTDRO 17:56 → 2ANU 18:41
PROVIDERS: ADMIT Internal Medicine Endocrinology, Diabetes & Metabolism; ATTEND Internal Medicine